=== PATIENT | male | born 1965 | race Hispanic/Latino ===

== ENCOUNTER → 2017-07-21 | Outpatient (CLI) | payer BC ==
--- NOTE | 2017-07-21 13:12 | Diagnostic Imaging Report ---
PROCEDURE: CT ABDOMEN AND PELVIS WITHOUT CONTRAST TECHNIQUE: The abdomen and pelvis were scanned utilizing a multidetector helical scanner from the diaphragm to the lesser trochanter after the oral administration of water. No IV contrast was administered per protocol. Coronal and sagittal multiplanar reformations were obtained. COMPARISON: Patients [facility], CT, CT ABDOMEN/PELVIS W, 05/16/2016, 16:58. INDICATIONS: RENAL STONE FINDINGS: ABSENCE OF INTRAVENOUS CONTRAST DECREASES SENSITIVITY FOR DETECTION OF FOCAL LESIONS AND VASCULAR PATHOLOGY. LOWER THORAX: Stable 5 mm pulmonary nodule in the lateral right lower lobe (series 3, image 12). Stable 4 mm nodule in the lateral right lower lobe (series 3, image 6). 0.7 x 0.8 cm slightly spiculated nodule in the posterior left lower lobe, which was not seen on the prior exam (series 3, image 20). HEPATOBILIARY: Hepatic steatosis, predominantly involving the right hepatic lobe. No focal lesions. No biliary ductal dilation. 5 mm calcified stone in the gallbladder lumen. No wall thickening or pericholecystic fluid. SPLEEN: Spleen size in the upper limit of normal. No focal lesions. PANCREAS: No focal masses or ductal dilatation. ADRENALS: No adrenal nodules. KIDNEYS/URETERS: No renal or ureteral calculi, hydronephrosis, hydroureter, or evidence of obstruction. Interval increase in size of approximately 2.7 x 2.9 x 2.7 cm the fluid density lesion in the mid to inferior lateral right kidney (series 3, image 83), which contains a punctate peripheral calcification (previously measured 1.7 x 1.0 cm). Stable mild bilateral nonspecific perinephric stranding. PELVIC ORGANS/BLADDER: No bladder focal lesions, calculi, or wall thickening. Prostate is unremarkable. Pelvic phleboliths. PERITONEUM / RETROPERITONEUM: No free air or fluid. LYMPH NODES: No lymphadenopathy. VESSELS: Unremarkable. GI TRACT: No bowel dilation or evidence of obstruction. BONES AND SOFT TISSUES: Nonaggressive lytic lesion. Soft tissues are grossly unremarkable. IMPRESSION: 1. no renal, ureteral, or bladder calculi. No hydronephrosis, hydroureter, or evidence of obstruction. 2. Interval increase in size of minimally complex cystic lesion in the mid to inferior lateral right kidney, which contains a punctate peripheral calcification. Recommend followup renal ultrasound in 6-12 months document stability. 3. New 0.8 cm slightly spiculated pulmonary nodule in the left lower lobe. Per Fleischner Society 2017 guidelines, a CT chest is recommended in 6-12 months to document stability or resolution, whether this is a high or low risk patient. Meet Eason M.D. Dictated by: Meet Eason M.D. on 07/21/2017 at 13:11 Electronically approved by: Meet Eason M.D. on 07/21/2017 at 13:11
== END ==
LOC: CT 11:52
PROVIDERS: ATTEND Family Medicine
DX: N23 Unspecified renal colic (principal); R31.9 Hematuria, unspecified
CPT/HCPCS: 74176

== ENCOUNTER → 2017-07-22 | Outpatient (CLI) | payer BC ==
[~2017-07-22] MED LIST: IOPAMIDOL 370 MG/ML 200 ML INFUS..BTL INJ ONE; SODIUM CHLORIDE 0.9% 250ML 250 ML ONE
[2017-07-22 15:05] LABS: BLOOD UREA NITROGEN 14 mg/dL (7-26); BUN/CREATININE RATIO 13 (6-25); CREATININE, SERUM 1.05 mg/dL (0.72-1.25); EST GLOMERULAR FILTRATION RATE > 60 ML/MIN (60-)
--- NOTE | 2017-07-22 16:54 | Diagnostic Imaging Report ---
PROCEDURE:CT ABDOMEN AND PELVIS WITH CONTRAST COMPARISON:Unenhanced CT abdomen/pelvis 07/21/17, contrast enhanced CT 05/16/16 INDICATIONS:HEMATURIA, right-sided flank pain for several days TECHNIQUE: Multidetector CT scanning of the abdomen and pelvis was performed after the administration of 150 cc of nonionic contrast in a split bolus fashion to opacify the renal collecting systems, ureters, and bladder. Coronal and sagittal reformations were obtained. DLP: 887.3 mGY-cm FINDINGS: Lung bases: Spiculated nodule in the left lower lobe measures 8 mm and is stable. Subpleural nodule in the lateral right lower lobe measures 4 mm and is stable. No consolidation. Visualized portion of the mediastinum is normal. Liver: Decreased attenuation. No evidence of mass. Biliary: The gallbladder contains a subcentimeter calcified gallstone. No biliary ductal dilatation. Spleen: Normal size and attenuation without mass Pancreas: No mass or ductal dilatation. Mild fatty atrophy. Adrenal Glands: No mass. Kidneys/Ureters: Right kidney: Mildly heterogeneous enhancement. Cyst in the interpolar cortex measures 3.4 x 3.1 x 3.2 cm with hypoattenuation of the surrounding parenchyma. There is a punctate calcification of the wall at the 9:00 position. In 2016, this measured 1.7 cm. One calyx in the interpolar region (image 67) and one calyx in the lower pole (image 86) have a "golf ball on jessica" appearance. The remainder of the renal calyces are normal. There is no hydronephrosis. There are no filling defects in the opacified portion of the right ureter. The right ureter is not dilated. Left kidney: Mildly heterogeneous enhancement. No defined mass. There is excretion of contrast into normal appearing collecting systems. The left ureter is normal in diameter throughout its course. No intrinsic or extrinsic filling defects along the opacified portions. Gastrointestinal: The stomach, small bowel, and large bowel are normal in diameter and normal wall thickness. No diverticula are appreciated. The appendix is not visualized and may be absent or collapsed. Vasculature: The aorta and IVC are normal in diameter. No filling defects. Peritoneum/Retroperitoneum: No free fluid or fluid collection. Bladder: Well-distended. No evidence of mural thickening or intraluminal mass. No perivesicular inflammation. Reproductive organs: Prostate gland and seminal vesicles are unremarkable. Musculoskeletal: No focal osseous lesions. There are mild endplate degenerative changes of the spine. CONCLUSION: 1. Cystic mass in the right kidney with surrounding parenchymal hypoattenuation has the appearance of an abscess. Please correlate with signs/symptoms of UTI. Percutaneous drainage should be considered. 2. Two abnormal appearing calyces in the right kidney suggestive of papillary necrosis. 3. Heterogeneous enhancement of both kidneys could be the result of urinary tract infection. 4. No abnormalities of the bladder or urteters to explain hematuria. 5. Hepatic steatosis. 6. Stable pulmonary nodules. Findings of renal abscess discussed with Dr. Joaquín Quintana at 1646 hours on 07/22/2017. Dictated by: Mignon Crowell M.D. on 07/22/2017 at 16:53 Electronically approved by: Mignon Crowell M.D. on 07/22/2017 at 16:53
== END ==
LOC: CT 13:43
PROVIDERS: ATTEND Family Medicine
DX: R31.9 Hematuria, unspecified (principal)
CPT/HCPCS: 36415; 74177; 82565; 84520; J7050; Q9967

== ENCOUNTER 2017-07-23 13:39 | Inpatient (IN) | payer BC ==
[~2017-07-23] VITALS: Ht 180.3 cm; Wt 100.4 kg
--- OUTSIDE RECORDS SUMMARY | 2017-07-23 13:41 | XMS REPORT ---
Author Author [facility] Address Unknown Phone Unavailable Care Team Providers Care Recreation Facilities Supervisor Name Role Phone JOAQUÍN MARTIN Unavailable Unavailable Problems This patient has no known problems. Allergies, Adverse Reactions, Alerts This patient has no known allergies or adverse reactions. Medications This patient has no known medications. Results Test Description Test Time Test Comments Text Results Atomic Results Result Comments CT ABDOMEN/PELVIS W [place] [address] Patient Name: HIRA SINGH MR #: [id number] : 1965 Age/Sex: 51/M Req #: [id number] Adm Physician: Ordered by: MARIO CLAROS, JOAQUÍN Etienne MD Report #: [id number] Location: CT Room/Bed: ___ Procedure: [id number] CT/CT ABDOMEN/PELVIS W Exam Date: 07/22/17 Exam Time: 1500 REPORT STATUS: Signed PROCEDURE: CT ABDOMEN AND PELVIS WITH CONTRAST COMPARISON: Unenhanced CT abdomen/ pelvis 07/21/17, contrast enhanced CT 05/16/16 INDICATIONS: HEMATURIA, right-sided flank pain for several days TECHNIQUE: Multidetector CT scanning of the abdomen and pelvis was performed after the administration of 150 cc of nonionic contrast in a split bolus fashion to opacify the renal collecting systems, ureters, and bladder. Coronal and sagittal reformations were obtained. DLP: 887.3 mGY-cm FINDINGS: Lung bases: Spiculated nodule in the left lower lobe measures 8 mm and is stable. Subpleural nodule in the lateral right lower lobe measures 4 mm and is stable. No consolidation. Visualized portion of the mediastinum is normal. Liver: Decreased attenuation. No evidence of mass. Biliary: The gallbladder contains a subcentimeter calcified gallstone. No biliary ductal dilatation. Spleen: Normal size and attenuation without mass Pancreas: No mass or ductal dilatation. Mild fatty atrophy. Adrenal Glands : No mass. Kidneys/Ureters: Right kidney: Mildly heterogeneous enhancement. Cyst in the interpolar cortex measures 3.4 x 3.1 x 3.2 cm with hypoattenuation of the surrounding parenchyma. There is a punctate calcification of the wall at the 9:00 position. In 2016, this measured 1.7 cm. One calyx in the interpolar region (image 67) and one calyx in the lower pole (image 86) have a "golf ball on jessica" appearance. The remainder of the renal calyces are normal. There is no hydronephrosis. There are no filling defects in the opacified portion of the right ureter. The right ureter is not dilated. Left kidney: Mildly heterogeneous enhancement. No defined mass. There is excretion of contrast into normal appearing collecting systems. The left ureter is normal in diameter throughout its course. No intrinsic or extrinsic filling defects along the opacified portions. Gastrointestinal: The stomach, small bowel, and large bowel are normal in diameter and normal wall thickness. No diverticula are appreciated. The appendix is not visualized and may be absent or collapsed. Vasculature: The aorta and IVC are normal in diameter. No filling defects. Peritoneum/Retroperitoneum: No free fluid or fluid collection. Bladder: Well-distended. No evidence of mural thickening or intraluminal mass. No perivesicular inflammation. Reproductive organs: Prostate gland and seminal vesicles are unremarkable. Musculoskeletal: No focal osseous lesions. There are mild endplate degenerative changes of the spine. CONCLUSION: 1. Cystic mass in the right kidney with surrounding parenchymal hypoattenuation has the appearance of an abscess. Please correlate with signs/symptoms of UTI. Percutaneous drainage should be considered. 2. Two abnormal appearing calyces in the right kidney suggestive of papillary necrosis. 3. Heterogeneous enhancement of both kidneys could be the result of urinary tract infection. 4. No abnormalities of the bladder or urteters to explain hematuria. 5. Hepatic steatosis. 6. Stable pulmonary nodules. Findings of renal abscess discussed with Dr. Joaquín Martin at 1646 hours on 07/22/2017. Dictated by: Wendy Crowell M.D. on 07/22/2017 at 16 :53 Electronically approved by: Wendy Crowell M.D. on 07/22/2017 at 16:53 Dictated By: WENDY CROWELL MD 52 Transcribed By: DIEUDONNE on 07/22/171652 COPY TO: JOAQUÍN MARTIN CT ABDOMEN/PELVIS WO [place] [address] Patient Name: HIRA SINGH MR #: [id number] : 1965 Age/Sex: 51/M Req #: [id number] Adm Physician: Ordered by: JOAQUÍN MARTIN MD, MD Report #: [id number] Location: CT Room/Bed: ___ Procedure: [id number] CT/CT ABDOMEN/PELVIS WO Exam Date: 07/21/17 Exam Time: 1220 REPORT STATUS: Signed PROCEDURE: CT ABDOMEN AND PELVIS WITHOUT CONTRAST TECHNIQUE: The abdomen and pelvis were scanned utilizing a multidetector helical scanner from the diaphragm to the lesser trochanter after the oral administration of water. No IV contrast was administered per protocol. Coronal and sagittal multiplanar reformations were obtained. COMPARISON: [facility], CT, CT ABDOMEN/PELVIS W, 05/16/2016, 16:58. INDICATIONS: RENAL STONE FINDINGS: ABSENCE OF INTRAVENOUS CONTRAST DECREASES SENSITIVITY FOR DETECTION OF FOCAL LESIONS AND VASCULAR PATHOLOGY. LOWER THORAX: Stable 5 mm pulmonary nodule in the lateral right lower lobe ( series 3, image 12). Stable 4 mm nodule in the lateral right lower lobe ( series 3, image 6). 0.7 x 0.8 cm slightly spiculated nodule in the posterior left lower lobe, which was not seen on the prior exam (series 3, image 20). HEPATOBILIARY: Hepatic steatosis, predominantly involving the right hepatic lobe. No focal lesions. No biliary ductal dilation. 5 mm calcified stone in the gallbladder lumen. No wall thickening or pericholecystic fluid. SPLEEN: Spleen size in the upper limit of normal. No focal lesions. PANCREAS: No focal masses or ductal dilatation. ADRENALS: No adrenal nodules. KIDNEYS/URETERS: No renal or ureteral calculi, hydronephrosis, hydroureter, or evidence of obstruction. Interval increase in size of approximately 2.7 x 2.9 x 2.7 cm the fluid density lesion in the mid to inferior lateral right kidney (series 3, image 83), which contains a punctate peripheral calcification (previously measured 1.7 x 1.0 cm). Stable mild bilateral nonspecific perinephric stranding. PELVIC ORGANS/BLADDER: No bladder focal lesions, calculi, or wall thickening. Prostate is unremarkable. Pelvic phleboliths. PERITONEUM / RETROPERITONEUM: No free air or fluid. LYMPH NODES: No lymphadenopathy. VESSELS: Unremarkable. GI TRACT: No bowel dilation or evidence of obstruction. BONES AND SOFT TISSUES: Nonaggressive lytic lesion. Soft tissues are grossly unremarkable. IMPRESSION: 1. no renal, ureteral, or bladder calculi. No hydronephrosis, hydroureter, or evidence of obstruction. 2. Interval increase in size of minimally complex cystic lesion in the mid to inferior lateral right kidney, which contains a punctate peripheral calcification. Recommend followup renal ultrasound in 6-12 months document stability. 3. New 0.8 cm slightly spiculated pulmonary nodule in the left lower lobe. Per Fleischner Society 2017 guidelines, a CT chest is recommended in 6-12 months to document stability or resolution, whether this is a high or low risk patient. Sal Eason M.D. Dictated by: Sal Eason M.D. on 07/21/2017 at 13:11 Electronically approved by: Sal Eason M.D. on 07/21/2017 at 13:11 Dictated By: SAL EASON MD [id number] Transcribed By: DIEUDONNE on 07/21/17 1311 COPY TO: JOAQUÍN MARTIN
[2017-07-23 15:07] LABS: BASOPHILS % 0.2 % (0.0-1.0); EOSINOPHILS # (AUTO) 0.1 (0.0-0.4); EOSINOPHILS % 0.8 % (0.0-6.0); HEMATOCRIT 35.6 % (38.2-49.6); HEMOGLOBIN 11.8 g/dL (14.0-18.0); LYMPHOCYTES # (AUTO) 1.6 (1.0-3.2); LYMPHOCYTES % 15.5 % (18.0-39.1); MEAN CORPUSCULAR HEMOGLOBIN 26.2 pg (28-32); MEAN CORPUSCULAR HGB CONC 33.1 g/dL (31-35); MEAN CORPUSCULAR VOLUME 79.1 fL (81-99); MONOCYTES # (AUTO) 0.9 (0.2-0.8); MONOCYTES % 8.6 % (4.4-11.3); NEUTROPHILS # (AUTO) 7.5 (2.1-6.9); NEUTROPHILS % 74.5 % (38.7-80.0); PLATELET COUNT 288 x10e3/uL (140-360); RED CELL DISTRIBUTION WIDTH 13.2 % (11.7-14.4)
[2017-07-23 15:11] LABS: BILIRUBIN,URINE NEGATIVE (NEGATIVE); COLOR,URINE YELLOW (YELLOW); KETONES,URINE TRACE (NEGATIVE); LEUKOCYTE ESTERASE ,URINE 1+ (NEGATIVE); NITRITE,URINE NEGATIVE (NEGATIVE); URINE UROBILINOGEN 0.2 mg/dL (0.2 - 1)
[2017-07-23 15:12] LABS: CLARITY,URINE SL CLOUDY (CLEAR); PROTEIN,URINE DIPSTICK TRACE (NEGATIVE)
[2017-07-23 15:26] LABS: ALANINE AMINOTRANSFERASE 17 IU/L (0-55); ALBUMIN 2.9 g/dL (3.5-5.0); ALBUMIN/GLOBULIN RATIO 0.5 (0.8-2.0); ALKALINE PHOSPHATASE 90 IU/L (40-150); BLOOD UREA NITROGEN 14 mg/dL (7-26); BUN/CREATININE RATIO 13 (6-25); CALCIUM 9.4 mg/dL (8.4-10.2); CARBON DIOXIDE 29 mmol/L (22-29); CHLORIDE 92 mmol/L (98-107); CREATININE, SERUM 1.11 mg/dL (0.72-1.25); EST GLOMERULAR FILTRATION RATE > 60 ML/MIN (60-); GLUCOSE 355 mg/dL (74-118); SODIUM 132 mmol/L (136-145)
[2017-07-23 15:28] LABS: BACTERIA,URINE FEW /HPF; MUCUS,URINE FEW (RARE)
[2017-07-23] MEDS ORDERED: MORPHINE SULFATE 2 MG/ML SYR IV PRN (16:00)
[2017-07-23] MEDS ORDERED: SODIUM CHLORIDE FLUSH 10 ML SYR INJ PRN (16:00)
[2017-07-23] MEDS ORDERED: PIPER-TAZ 3.375 GM 50 ML IV ONE (16:00)
[2017-07-23 16:18] LABS: INR 1.24; PROTHROMBIN TIME 14.7 seconds (11.9-14.5)
[2017-07-23 16:19] LABS: PARTIAL THROMBOPLASTIN TIME 34.7 seconds (23.8-35.5)
[2017-07-23] MEDS ORDERED: ACETAMINOPHEN 325 MG TAB PO PRN (16:30)
[2017-07-23] MEDS ORDERED: INSULIN DETEMIR 100 UNIT/ML PEN SQ ONE (16:45)
[2017-07-23] MEDS ORDERED: METFORMIN HCL 500 MG TAB PO SCH (17:00)
--- NOTE | 2017-07-23 17:19 | Diagnostic Imaging Report ---
PROCEDURE: A single AP view of the chest. COMPARISON: Patients [facility], , CHEST 2 VIEWS, 05/12/2016, 17:09. INDICATIONS: cough FINDINGS: Lines/tubes: None. Lungs: The lungs are well inflated and grossly clear. There is no evidence of pneumonia or pulmonary edema. Pleura: There is no pleural effusion or pneumothorax. Heart and mediastinum: Cardiac silhouette is unremarkable. Pulmonary vasculature is normal. Bones: No acute bony abnormality. IMPRESSION: 1. No acute cardiopulmonary abnormalities. Meet Eason M.D. Dictated by: Meet Eason M.D. on 07/23/2017 at 17:19 Electronically approved by: Meet Eason M.D. on 07/23/2017 at 17:19
[2017-07-23] MEDS: SODIUM CHLORIDE 0.9% 1000ML 1,000 ML IV SCH (17:30)
[2017-07-23] MEDS: INSULIN LISPRO 100 UNIT/1 ML 3ML VIAL SQ SCH ×2 (17:51→21:00)
[2017-07-23 22:50] VITALS: BP 148/79
[2017-07-24] VITALS (9 sets, daily range): BP systolic 115–148; BP diastolic 60–80
[2017-07-24] MEDS: SODIUM CHLORIDE 0.9% 1000ML 1,000 ML IV SCH ×4 (00:18→23:50)
[2017-07-24 06:32] LABS: BASOPHILS % 0.1 % (0.0-1.0); EOSINOPHILS # (AUTO) 0.1 (0.0-0.4); EOSINOPHILS % 1.1 % (0.0-6.0); HEMATOCRIT 32.1 % (38.2-49.6); HEMOGLOBIN 10.6 g/dL (14.0-18.0); LYMPHOCYTES # (AUTO) 1.6 (1.0-3.2); LYMPHOCYTES % 17.4 % (18.0-39.1); MEAN CORPUSCULAR VOLUME 78.9 fL (81-99); MONOCYTES # (AUTO) 0.8 (0.2-0.8); MONOCYTES % 8.5 % (4.4-11.3); NEUTROPHILS # (AUTO) 6.6 (2.1-6.9); NEUTROPHILS % 72.7 % (38.7-80.0); PLATELET COUNT 280 x10e3/uL (140-360); RED BLOOD COUNT 4.07 x10e6/uL (4.3-5.7); RED CELL DISTRIBUTION WIDTH 13.2 % (11.7-14.4)
[2017-07-24 06:45] LABS: INR 1.29; PROTHROMBIN TIME 15.1 seconds (11.9-14.5)
[2017-07-24 06:46] LABS: PARTIAL THROMBOPLASTIN TIME 37.4 seconds (23.8-35.5)
[2017-07-24 06:53] LABS: ALANINE AMINOTRANSFERASE 16 IU/L (0-55); ALBUMIN 2.5 g/dL (3.5-5.0); ALBUMIN/GLOBULIN RATIO 0.5 (0.8-2.0); ALKALINE PHOSPHATASE 74 IU/L (40-150); ANION GAP 16.3 mmol/L (8-16); BLOOD UREA NITROGEN 11 mg/dL (7-26); BUN/CREATININE RATIO 12 (6-25); CALCIUM 8.6 mg/dL (8.4-10.2); CARBON DIOXIDE 25 mmol/L (22-29); CHLORIDE 95 mmol/L (98-107); CHOL/HDL RATIO 10.3 (3.9-4.7); CHOLESTEROL 124 MD/DL (0-199); EST GLOMERULAR FILTRATION RATE > 60 ML/MIN (60-); GLUCOSE 310 mg/dL (74-118); HDL CHOLESTEROL 12 MG/DL (40-60); LDL CHOLESTEROL 84 MG/DL (60-130); MAGNESIUM 1.4 MG/DL (1.3-2.1); PHOSPHORUS 3.5 MG/DL (2.3-4.7); POTASSIUM 3.3 mmol/L (3.5-5.1); SODIUM 133 mmol/L (136-145); TRIGLYCERIDES 138 MG/DL (0-149)
[2017-07-24] MEDS: INSULIN LISPRO 100 UNIT/1 ML 3ML VIAL SQ SCH ×4 (07:30→21:31)
[2017-07-24] MEDS ORDERED: PIPER-TAZ 3.375 GM 50 ML IV ONE (08:00)
[2017-07-24] MEDS ORDERED: FENTANYL CITRATE/PF 100MCG/2 ML INJ ONE (13:07)
[2017-07-24] MEDS ORDERED: MIDAZOLAM HCL 2 MG/2 ML VIAL ONE (13:12)
--- NOTE | 2017-07-24 14:46 | Consultation ---
DATE OF CONSULTATION: REASON FOR CONSULTATION: Renal abscess. HISTORY OF PRESENT ILLNESS: This patient is a 51-year-old male who is coming with right-sided abdominal pain. The patient was admitted to the hospital. I was asked to see him. He is currently undergoing aspiration of an abscess. I did go over the patient and patient had aspiration of 5 mL of pus from his kidney, did well. Discussed with the radiologist the plan to send it to culture and sensitivity. The patient currently comfortable. PAST MEDICAL HISTORY: Diabetes. PAST SURGICAL HISTORY: Denies. ALLERGIES: NKA. PHYSICAL EXAMINATION GENERAL: Currently, alert, oriented, does not seem to be in acute distress. VITALS: Stable, currently afebrile. HEENT: Nonicteric. NECK: Supple. CHEST: Clear. HEART: S1 and S2. No murmur. ABDOMEN: Soft. LABORATORY DATA: Sodium 133, potassium 3.3, and creatinine 0.92. His white count 9.27 and hemoglobin 10. IMPRESSION AND PLAN 1. Renal abscess, agree with aspiration. Await culture and sensitivity. Agree with Zosyn. We will modify after sensitivity. 2. Diabetes. 3. We will follow with you. Job#: [id number] VAS
[2017-07-24] MEDS ORDERED: DEXTROSE 50% SYRINGE 50 ML IV PRN (16:45)
--- NOTE | 2017-07-24 16:47 | Consultation ---
DATE OF CONSULTATION: July 24, 2017 REASON FOR CONSULTATION: Renal abscess. HISTORY: This is a 51-year-old male who approximately 3-4 weeks ago experienced gross painless hematuria. This went away by itself. He went to the doctor and took several days of antibiotics, and apparently things improved. Subsequent to that, the patient over the last 48 hours felt worse with fever, chills, weak, had noticed that he has lost some weight over the last 3 weeks and that he started developing pain on the right flank. At that point, he wanted to see Dr. Quintana and a CT scan was ordered. It showed no stones, but it showed perhaps a shadow of the right kidney. Recommendation to do a CT scan with contrast was done. The patient was scheduled for that and that CT scan did reveal that the patient had an abscess on the right kidney. At that point, decision was to admit the patient to the hospital. He also has had culture report from Dr. Quintana's office showing Staphylococcus aureus, methicillin resistant. I discussed the case with Dr. Martinez, and our decision was to have the invasive radiologist drain that abscess together with Dr. Odell for continuation of care with IV antibiotics for 3-4 weeks. PAST SURGICAL HISTORY: Eye surgery. PAST MEDICAL HISTORY: Diabetes. SOCIAL HISTORY: . Has had problems with sexual intercourse and erection. He has had one child and has one grandchild. UROLOGICAL HISTORY: Essentially negative with no surgeries and no problems urinating. PHYSICAL EXAMINATION : Descended testicles, normal. No hernias. Penis normal. Prostate 25 to [address] scan: Abscess of the right kidney. RECOMMENDATIONS: Percutaneous drainage by invasive radiologist. Cultures for gram-positive, gram-negative and fungus, even though the urine shows Staph aureus. Follow up CT scan to make sure that the abscessed cavity has totally collapsed before the tube is removed. This should be done within 3-5 days after placement. I will follow the patient with you. Job#: [id number]
[2017-07-24] MEDS ORDERED: PIPER-TAZ 3.375 GM 50 ML IV SCH (17:00)
[2017-07-24] MEDS ORDERED: POTASSIUM CHLORIDE 20 MEQ TAB CR PO ONE (17:10)
[2017-07-24] MEDS: VANCOMYCIN 1GM/NS 250 ML 250 ML IV SCH (17:21)
[2017-07-24] MEDS: ONDANSETRON HCL INJ 2 MG/ML VIAL IV PRN (18:06)
[2017-07-24] MEDS ORDERED: PROMETHAZINE 25MG/ NS 50ML (IV) IV PRN (18:45)
[2017-07-24] MEDS: PIPER-TAZ 3.375 GM 50 ML IV SCH (20:59)
[2017-07-24] MEDS ORDERED: INSULIN DETEMIR 100 UNIT/ML PEN SQ SCH (21:00)
[2017-07-24] MEDS ORDERED: PIPER-TAZ 3.375 GM / NS 50ML IV SCH (22:00)
[2017-07-24] MEDS ORDERED: MORPHINE SULFATE INJ 4 MG/ML INJ IV PRN (22:00)
[2017-07-24] MEDS: MORPHINE SULFATE 2 MG/ML SYR IV PRN (22:26)
[2017-07-25] VITALS (8 sets, daily range): BP systolic 122–164; BP diastolic 74–92
[2017-07-25] MEDS: SODIUM CHLORIDE 0.9% 1000ML 1,000 ML IV SCH ×3 (00:45→15:59)
[2017-07-25] MEDS: VANCOMYCIN 1GM/NS 250 ML 250 ML IV SCH ×2 (03:28→17:20)
[2017-07-25] MEDS: PIPER-TAZ 3.375 GM 50 ML IV SCH ×3 (04:58→19:53)
[2017-07-25] MEDS: ONDANSETRON HCL INJ 2 MG/ML VIAL IV PRN (05:57)
[2017-07-25 07:35] LABS: BASOPHILS % 0.2 % (0.0-1.0); EOSINOPHILS # (AUTO) 0.1 (0.0-0.4); EOSINOPHILS % 1.1 % (0.0-6.0); HEMATOCRIT 32.8 % (38.2-49.6); HEMOGLOBIN 10.7 g/dL (14.0-18.0); LYMPHOCYTES # (AUTO) 1.4 (1.0-3.2); LYMPHOCYTES % 15.4 % (18.0-39.1); MEAN CORPUSCULAR HEMOGLOBIN 26.1 pg (28-32); MEAN CORPUSCULAR HGB CONC 32.6 g/dL (31-35); MONOCYTES # (AUTO) 0.7 (0.2-0.8); MONOCYTES % 7.9 % (4.4-11.3); NEUTROPHILS # (AUTO) 6.9 (2.1-6.9); NEUTROPHILS % 74.9 % (38.7-80.0); PLATELET COUNT 294 x10e3/uL (140-360); RED CELL DISTRIBUTION WIDTH 13.5 % (11.7-14.4)
[2017-07-25] MEDS: INSULIN LISPRO 100 UNIT/1 ML 3ML VIAL SQ SCH ×4 (07:57→20:26)
[2017-07-25 08:12] LABS: ANION GAP 14.6 mmol/L (8-16); BLOOD UREA NITROGEN 8 mg/dL (7-26); BUN/CREATININE RATIO 10 (6-25); CALCIUM 8.4 mg/dL (8.4-10.2); CARBON DIOXIDE 26 mmol/L (22-29); CHLORIDE 99 mmol/L (98-107); CREATININE, SERUM 0.84 mg/dL (0.72-1.25); EST GLOMERULAR FILTRATION RATE > 60 ML/MIN (60-); GLUCOSE 296 mg/dL (74-118); MAGNESIUM 1.4 MG/DL (1.3-2.1); POTASSIUM 3.6 mmol/L (3.5-5.1); SODIUM 136 mmol/L (136-145)
[2017-07-25] MEDS ORDERED: LACTULOSE SYRUP 20 GM/30 ML UDC PO PRN (12:30)
[2017-07-25] MEDS ORDERED: ENOXAPARIN SOD INJ 40 MG/0.4 ML SYR SC SCH (17:00)
[2017-07-25] MEDS ORDERED: ONDANSETRON HCL INJ 2 MG/ML VIAL IV PRN (18:00)
[2017-07-25] MEDS: INSULIN DETEMIR 100 UNIT/ML PEN SQ SCH (20:26)
[2017-07-25] MEDS: MORPHINE SULFATE 2 MG/ML SYR IV PRN (20:28)
[2017-07-26] VITALS (7 sets, daily range): BP systolic 123–159; BP diastolic 73–98
[2017-07-26] MEDS: VANCOMYCIN 1GM/NS 250 ML 250 ML IV SCH (05:01)
[2017-07-26] MEDS: PIPER-TAZ 3.375 GM 50 ML IV SCH (07:04)
[2017-07-26] MEDS: SODIUM CHLORIDE 0.9% 1000ML 1,000 ML IV SCH (07:59)
[2017-07-26] MEDS: INSULIN LISPRO 100 UNIT/1 ML 3ML VIAL SQ SCH ×4 (08:17→21:14)
[2017-07-26] MEDS: FLUCONAZOLE 200 MG/100 ML 100 ML IV SCH (11:58)
[2017-07-26] MEDS ORDERED: ACETAMINOPHEN/CODEINE 300MG - 30MG TAB PO PRN (12:15)
[2017-07-26] MEDS: LISINOPRIL 2.5 MG TAB PO SCH (13:34)
[2017-07-26] MEDS: VANCOMYCIN HCL 1.25 GM in SODIUM CHLORIDE 0.9% 250ML 300 ML IV SCH (13:34)
--- NOTE | 2017-07-26 15:26 | Diagnostic Imaging Report ---
EXAMINATION: CHEST XRAY LINE PLACEMENT 07/26/2017 2:52 PM COMPARISON: None INDICATION: PICC line placement DISCUSSION: LINES: Right upper extremity PICC line has its tip near the cavoatrial junction LUNGS: Low lung volumes. Patchy opacities in the right lung base may be related to atelectasis PLEURA: No pleural effusion or pneumothorax. HEART AND MEDIASTINUM: The cardiomediastinal silhouette is unremarkable. BONES AND SOFT TISSUES: No acute osseous lesion. The soft tissues are normal. IMPRESSION: Right upper history PICC line has its tip near the cavoatrial junction. Blayne Mckinney MD Signed by: Dr. Blayne Mckinney M.D. on 07/26/2017 3:23 PM
[2017-07-26] MEDS: METFORMIN HCL 500 MG TAB PO SCH (16:37)
[2017-07-26] MEDS: MORPHINE SULFATE 2 MG/ML SYR IV PRN (20:02)
[2017-07-26] MEDS: INSULIN DETEMIR 100 UNIT/ML PEN SQ SCH (21:14)
[2017-07-27] MEDS: VANCOMYCIN HCL 1.25 GM in SODIUM CHLORIDE 0.9% 250ML 300 ML IV SCH ×2 (00:56→13:45)
[2017-07-27 01:08] VITALS: BP 153/89
[2017-07-27 05:44] VITALS: BP 153/94
[2017-07-27] MEDS: INSULIN LISPRO 100 UNIT/1 ML 3ML VIAL SQ SCH ×2 (07:30→12:00)
--- NOTE | 2017-07-27 07:54 | Diagnostic Imaging Report ---
PROCEDURE:PRUDENCIO ABD FLUID/ABSC W/CATH-US COMPARISON:CT abdomen and pelvis 07/22/2017. INDICATIONS:Renal abscess. FINDINGS:The patient was placed prone on the bed. Focused sonographic evaluation of the right kidney demonstrated the right renal abscess. A safe approach was determined. The right flank was prepped and draped in usual sterile fashion. 1% lidocaine was infused into the subcutaneous tissues for local anesthesia. Utilizing direct sonographic guidance, an 18 gauge needle was advanced into the right renal abscess. Aspiration of purulent material confirmed proper position of the needle within the abscess. A stiff 0.035 inch wire was advanced into the abscess. Single dilation was performed over the wire. A 10 [place] all-purpose drainage catheter was advanced over the wire. The catheter tip is coiled within the abscess. The wire was removed. The catheter was secured in the proper position. 10 cc of purulent material was aspirated and sent for further evaluation. The catheter was secured to the skin with 3-0 Ethilon suture. A sterile dressing was applied. No immediate complications. The patient tolerated the procedure well. The patient was transferred to the postprocedure area in stable unchanged condition for further monitoring. CONCLUSION:Successful placement of a percutaneous drainage catheter within the right renal abscess utilizing ultrasound guidance. Dictated by: Bhupendra Horne M.D. on 07/27/2017 at 7:53 Electronically approved by: Bhupendra Horne M.D. on 07/27/2017 at 7:53
[2017-07-27 08:00] VITALS: BP 132/75
[2017-07-27] MEDS: METFORMIN HCL 500 MG TAB PO SCH (08:00)
[2017-07-27] MEDS: FLUCONAZOLE 200 MG/100 ML 100 ML IV SCH (10:25)
--- NOTE | 2017-07-27 12:43 | Discharge Summary ---
PRIMARY CARE DOCTOR: Dr. Joaquín Quintana. FINAL DIAGNOSIS: Methicillin-resistant Staph aureus septicemia complicated by renal abscess. SECONDARY DIAGNOSIS 1. Diabetes. 2. Possible hypertension. 3. Dyslipidemia. 4. Hyponatremia, resolved. CONSULTANTS 1. Dr. Odell, infectious disease. 2. Dr. Abhi Avila, urology. PROCEDURES/STUDIES PERFORMED 1. Computed tomography of the abdomen and pelvis. 2. Percutaneous renal abscess drainage. 3. Peripherally inserted central catheter line replacement. HISTORY: Per H\T\P. HOSPITAL COURSE: Patient was admitted. Given the fact that we knew that his outpatient urine culture was MRSA, vancomycin was started. Zosyn was empirically started as well, but subsequently this was discontinued. Patient underwent percutaneous drainage, which revealed 15 mL of pus and this was growing MRSA. After that there was not much more drainage. Therefore, the drain will be removed later today. Patient will be going home on IV vancomycin with Dr. Odell once this is set up. Patient was seen and examined today. Took 32 minutes total to discharge this patient today. CONDITION ON DISCHARGE: Stable. DISCHARGE MEDICATIONS: Please see medication reconciliation form. ADELITA LEIVA M.D. Job#: [id number] EV cc:JOAQUÍN QUINTANA MD
[2017-07-27] MEDS: MORPHINE SULFATE 2 MG/ML SYR IV PRN (13:51)
[2017-07-27] MEDS: LISINOPRIL 2.5 MG TAB PO SCH (14:02)
== END 2017-07-27 16:52 | disposition home or self-care (01) | DRG 871 ==
LOC: ER 13:39 → ERHOLD 17:54 → MED/SURG2 22:26
PROVIDERS: ADMIT Internal Medicine; ATTEND Internal Medicine
PROC: 0T9030Z Drainage of Right Kidney with Drainage Device, Percutaneous Approach (ICD-10-PCS; principal; 2017-07-24)
PROC: 02HV33Z Insertion of Infusion Device into Superior Vena Cava, Percutaneous Approach (ICD-10-PCS; 2017-07-26)
DX: A41.02 Sepsis due to Methicillin resistant Staphylococcus aureus (principal); N15.1 Renal and perinephric abscess; E87.1 Hypo-osmolality and hyponatremia; B37.49 Other urogenital candidiasis; N39.0 Urinary tract infection, site not specified; E11.65 Type 2 diabetes mellitus with hyperglycemia; B95.62 Methicillin resistant Staphylococcus aureus infection as the cause of diseases classified elsewhere; Z79.4 Long term (current) use of insulin; E87.6 Hypokalemia
CPT/HCPCS: 36415; 36569; 49406; 71045; 74470; 80048; 80053; 80061; 80202; 81001; 82948; 83036; 83735; 84100; 85025; 85610; 85730; 87040; 87071; 87075; 87086; 87102; 87186; 87205; 87206; 88112; 88305; 88312; 96360; 96372; 99284; C1729; J1450; J1650; J2250; J2270; J2405; J2543; J2550; J3370; J7030; J7050

== ENCOUNTER → 2017-08-10 | Outpatient (CLI) | payer BC ==
--- NOTE | 2017-08-10 17:13 | Diagnostic Imaging Report ---
PROCEDURE:US RETROPERITONEAL ( KIDNEY ). COMPARISON:None. INDICATIONS:UTI TECHNIQUE: [place]-scale and color sonographic images of the bilateral kidneys and bladder where obtained in transverse and longitudinal planes. FINDINGS: RIGHT KIDNEY: 13.1 cm in length. Cysts: None Solid masses: None Stones: None Hydronephrosis: None Echogenicity: Normal LEFT KIDNEY: 12.6 cm in length. Cysts: None Solid masses: None Stones: None Hydronephrosis: None Echogenicity: Normal Bladder: Well-distended. No focal mural thickening or mass. Bladder jets are visible. Prevoid volume is 63.4 cc. Postvoid volume is 20.6 cc. Prostate gland measures 3.8 x 5.9 x 2.8 cm. The echotexture is normal. Visualized portions of the liver and spleen demonstrate no focal abnormality. The liver is increased in echotexture suggestive of steatosis. CONCLUSION: Sonographically normal kidneys and bladder. No significant post void residual in the bladder. Hepatic steatosis. Dictated by: Mignon Crowell M.D. on 08/10/2017 at 17:13 Electronically approved by: Mignon Crowell M.D. on 08/10/2017 at 17:13
== END | disposition home or self-care (01) ==
LOC: US 12:44
PROVIDERS: ATTEND Urology
DX: N39.0 Urinary tract infection, site not specified (principal); K76.0 Fatty (change of) liver, not elsewhere classified
CPT/HCPCS: 76770; 76857

== ENCOUNTER → 2017-08-12 | Outpatient (CLI) | payer BC ==
[2017-08-12 10:07] LABS: BUN/CREATININE RATIO 19 (6-25); EST GLOMERULAR FILTRATION RATE > 60 ML/MIN (60-)
[2017-08-12 10:08] LABS: BLOOD UREA NITROGEN 17 mg/dL (8-26); CREATININE, SERUM 0.9 mg/dL (0.9-1.3)
--- NOTE | 2017-08-12 10:58 | Diagnostic Imaging Report ---
PROCEDURE: CHEST XRAY LINE PLACEMENT COMPARISON: 07/26/2017. INDICATIONS: PICC LINE PLACEMENT FINDINGS: Interval removal of right upper extremity PICC and placement of a left upper extremity PICC, with the tip projecting over the expected region of the superior cavoatrial junction. Lungs remain well-inflated and without consolidation, pleural effusion, or pneumothorax. Cardiomediastinal contour and pulmonary vasculature are within normal limits. No acute osseous abnormality. CONCLUSION: Tip of left upper extremity PICC projects over the superior cavoatrial junction. Clear lungs. Dictated by: Jose Daniel Arce M.D. on 08/12/2017 at 10:58 Electronically approved by: Jose Daniel Arce M.D. on 08/12/2017 at 10:58
== END ==
LOC: DX 09:09
PROVIDERS: ATTEND Internal Medicine Infectious Disease
DX: N15.9 Renal tubulo-interstitial disease, unspecified (principal)
CPT/HCPCS: 36415; 71045; 82565; 84520

== ENCOUNTER → 2017-08-26 | Outpatient (CLI) | payer BC | LOC: RAD 08:53 | PROVIDERS: ATTEND Internal Medicine Infectious Disease | DX: I38 Endocarditis, valve unspecified (principal) | CPT/HCPCS: 93306 ==

== ENCOUNTER → 2017-10-13 | Outpatient (CLI) | payer BC | LOC: RAD 10:24 | PROVIDERS: ATTEND Family Medicine | DX: M79.605 Pain in left leg (principal); R60.9 Edema, unspecified | CPT/HCPCS: 93971 ==

== ENCOUNTER 2017-10-18 10:34 | Inpatient (IN) | payer BC ==
[~2017-10-18] VITALS: Ht 180.3 cm; Wt 102.1 kg
[2017-10-18] MEDS ORDERED: SODIUM CHLORIDE 0.9% 1000ML 1,000 ML IV STA (10:39)
[2017-10-18] MEDS ORDERED: KETOROLAC TROMETHAMINE 30 MG/ML VIAL IV STA (10:39)
--- OUTSIDE RECORDS SUMMARY | 2017-10-18 10:39 | XMS REPORT | Continuity of Care Document ---
Author Author [facility] Organization 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 No 07/23/17 11:57pm If yes, is advance directive on file with [facility]? No 07/23/17 11:57pm If not on file with [facility] will patient provide a copy? No 07/23/17 11:57pm Do you have a Directive to Physician? No 07/23/17 3:45pm Do you have a Medical Power of Principal Technical Specialist? No 07/23/17 3:45pm Do you have an out of hospital Do Not Resuscitate Order? No 07/23/17 3:45pm Do you have any special needs we should be aware of? No 07/23/17 3:45pm Do you have a support person here with you today? Yes 07/23/17 3:45pm Did patient receive Notice of Privacy Practices? Yes 07/23/17 3:45pm Did patient receive patient rights and responsibilities? Yes 07/23/17 3:45pm Problems Medical Problem Onset Date Status Renal abscess Unknown Medications No medication information available. Social History Social History Problem Response Recorded Date/Time Onset Date Status Hx Psychiatric Problems No 07/23/2017 11:57pm Not Applicable Not Applicable Smoking Status Start Date Stop Date Current every day smoker Hospital Discharge Instructions No hospital discharge instruction information available. Plan of Care Discharge Date 07/27/17 4:52pm Disposition HOME, SELF-CARE Instructions/Education Provided Hematuria - Male Prescriptions See Medication Section Referrals SHIELA DUFFY MD (Infectious Disease) Order Date: 07/28/2017 Entered Date: 07/27/2017 3:55pm Address: [address] [place] [address] [place] [id number] SARAH PAGAN MD (Urology) Entered Date: 07/27/2017 3:55pm Address: [address] [place] [id number] Additional Instructions/Education Please continue home medications. Follow with Dr. Duffy 07/28/17 in office for IV antibiotics. Functional Status Query Response Date Recorded Assistive Devices None July 24, 2017 12:02am Ambulation Ability Independent July 24, 2017 12:02am Toileting Ability Independent July 26, 2017 11:58am Allergies, Adverse Reactions, Alerts No known allergies. Immunizations No immunization information available. Vital Signs Acute Vital Signs Vital Response Date/Time Temperature (Fahrenheit) 97.1 degrees F (97.6 - 99.5) 07/27/2017 8:00am Pulse Pulse Rate (adult) 81 bpm (60 - 90) 07/27/2017 8:00am Respiratory Rate 19 bpm (12 - 24) 07/27/2017 8:00am Blood Pressure 132/75 mm Hg 07/27/2017 8:00am Height 5 ft 11 in 07/23/2017 2:25pm Weight 221.25 lb 07/25/2017 1:50am Body Mass Index 30.9 kg/m^2 07/25/2017 1:50am Results Laboratory Results Test Name Result Units Flags Reference Collection Date/Time Result Date/ Time Comments White Blood Count 9.15 x10e3/uL 4.8-10.8 07/25/2017 6:48am 07/25/2017 7 :39am Red Blood Count 4.10 x10e6/uL L 4.3-5.7 07/25/2017 6:48am 07/25/2017 7: 39am Hemoglobin 10.7 g/dL L 14.0-18.0 07/25/2017 6:48am 07/25/2017 7:39am Hematocrit 32.8 % L 38.2-49.6 07/25/2017 6:48am 07/25/2017 7:39am Mean Corpuscular Volume 80.0 fL L 81-99 07/25/2017 6:48am 07/25/2017 7: 39am Mean Corpuscular Hemoglobin 26.1 pg L 28-32 07/25/2017 6:48am 2017 7:39am Mean Corpuscular Hemoglobin Concent 32.6 g/dL 31-35 07/25/2017 6:48am 07/25/2017 7:39am Red Cell Distribution Width 13.5 % 11.7-14.4 07/25/2017 6:48am 2017 7:39am Platelet Count 294 x10e3/uL 140-360 07/25/2017 6:48am 07/25/2017 7: 39am Neutrophils (%) (Auto) 74.9 % 38.7-80.0 07/25/2017 6:48am 07/25/2017 7: 39am Lymphocytes (%) (Auto) 15.4 % L 18.0-39.1 07/25/2017 6:48am 07/25/2017 7 :39am Monocytes (%) (Auto) 7.9 % 4.4-11.3 07/25/2017 6:48am 07/25/2017 7: 39am Eosinophils (%) (Auto) 1.1 % 0.0-6.0 07/25/2017 6:48am 07/25/2017 7: 39am Basophils (%) (Auto) 0.2 % 0.0-1.0 07/25/2017 6:48am 07/25/2017 7:39am IM GRANULOCYTES % 0.5 % 0.0-1.0 07/25/2017 6:48am 07/25/2017 7:39am Neutrophils # (Auto) 6.9 2.1-6.9 07/25/2017 6:48am 07/25/2017 7:39am Lymphocytes # (Auto) 1.4 1.0-3.2 07/25/2017 6:48am 07/25/2017 7:39am Monocytes # (Auto) 0.7 0.2-0.8 07/25/2017 6:48am 07/25/2017 7:39am Eosinophils # (Auto) 0.1 0.0-0.4 07/25/2017 6:48am 07/25/2017 7:39am Basophils # (Auto) 0.0 0.0-0.1 07/25/2017 6:48am 07/25/2017 7:39am Absolute Immature Granulocyte (auto 0.05 x10e3/uL 0-0.1 07/25/2017 6: 48am 07/25/2017 7:39am Prothrombin Time 15.1 seconds H 11.9-14.5 07/24/2017 5:52am 07/24/2017 6 :47am Prothromb Time International Ratio 1.29 07/24/2017 5:52am 2017 6:47am Oral Anticoagulant Therapy INR Values: 1. Low Intensity Therapy 1.5 - 2.0 2. Moderate Intensity Therapy 2.0 - 3.0 3. High Intensity Therapy(1) 2.5 - 3.5 4. High Intensity Therapy(2) 3.0 - 4.0 5. Panic Value INR > 5.0 Activated Partial Thromboplast Time 37.4 seconds H 23.8-35.5 07/24/2017 5 :52am 07/24/2017 6:47am Urine Color YELLOW YELLOW 07/23/2017 2:34pm 07/23/2017 3:12pm Urine Clarity SL CLOUDY H CLEAR 07/23/2017 2:34pm 07/23/2017 3:12pm Urine Specific [place] 1.025 1.010-1.025 07/23/2017 2:34pm 2017 3:12pm Urine pH 5 5 - 7 07/23/2017 2:34pm 07/23/2017 3:12pm Urine Leukocyte Esterase 1+ H NEGATIVE 07/23/2017 2:34pm 07/23/2017 3: 12pm Urine Nitrite NEGATIVE NEGATIVE 07/23/2017 2:34pm 07/23/2017 3:12pm Urine Protein TRACE H NEGATIVE 07/23/2017 2:34pm 07/23/2017 3:12pm Urine Glucose (UA) 3+ H NEGATIVE 07/23/2017 2:34pm 07/23/2017 3:12pm Urine Ketones TRACE H NEGATIVE 07/23/2017 2:34pm 07/23/2017 3:12pm Urine Urobilinogen 0.2 mg/dL 0.2 - 1 07/23/2017 2:34pm 07/23/2017 3: 12pm Urine Bilirubin NEGATIVE NEGATIVE 07/23/2017 2:34pm 07/23/2017 3: 12pm Urine Blood 2+ H NEGATIVE 07/23/2017 2:34pm 07/23/2017 3:12pm Urine WBC 11-20 /HPF H 0-5 07/23/2017 2:34pm 07/23/2017 3:28pm Urine RBC 11-20 /HPF H 0-5 07/23/2017 2:34pm 07/23/2017 3:28pm Urine Bacteria FEW /HPF NONE 07/23/2017 2:34pm 07/23/2017 3:28pm Urine Epithelial Cells NONE /LPF NONE 07/23/2017 2:34pm 07/23/2017 3: 28pm Urine Mucus FEW H RARE 07/23/2017 2:34pm 07/23/2017 3:28pm Sodium Level 136 mmol/L 136-145 07/25/2017 6:48am 07/25/2017 8:16am Potassium Level 3.6 mmol/L 3.5-5.1 07/25/2017 6:48am 07/25/2017 8:16am Chloride Level 99 mmol/L 98-107 07/25/2017 6:48am 07/25/2017 8:16am Carbon Dioxide Level 26 mmol/L 22-07/25/2017 6:48am 07/25/2017 8: 16am Anion Gap 14.6 mmol/L 8-16 07/25/2017 6:48am 07/25/2017 8:16am Blood Urea Nitrogen 8 mg/dL 7-07/25/2017 6:48am 07/25/2017 8:16am Creatinine 0.84 mg/dL 0.72-1.25 07/25/2017 6:48am 07/25/2017 8:16am BUN/Creatinine Ratio 10 6-25 07/25/2017 6:48am 07/25/2017 8:16am Estimat Glomerular Filtration Rate > 60 ML/MIN 60- 07/25/2017 6:48am 8:16am Ranges were taken from the National Kidney Disease Education Program and the National Kidney Foundation literature. Reference ranges: 60 or greater: Normal 16-59 (for 3 consecutive months): Chronic kidney disease 15 or less: Kidney failure Glucose Level 296 mg/dL H 74-118 07/25/2017 6:48am 07/25/2017 8:16am Calcium Level 8.4 mg/dL 8.4-10.2 07/25/2017 6:48am 07/25/2017 8:16am Bedside Glucose 247 mg/dL H 70-120 07/27/2017 3:52pm 07/27/2017 4:38pm Meter ID: [id number] Hemoglobin A1c Percent 12.6 % H 4.0-7.0 07/24/2017 5:52am 07/24/2017 6: 54am Phosphorus Level 3.5 MG/DL 2.3-4.7 07/24/2017 5:52am 07/24/2017 6:53am Magnesium Level 1.4 MG/DL 1.3-2.1 07/25/2017 6:48am 07/25/2017 8:16am Total Bilirubin 0.9 mg/dL 0.2-1.2 07/24/2017 5:52am 07/24/2017 6:53am Aspartate Amino Transf (AST/SGOT) 18 IU/L 5-34 07/24/2017 5:52am 2017 6:53am Alanine Aminotransferase (ALT/SGPT) 16 IU/L 0-55 07/24/2017 5:52am 6:53am Total Protein 7.5 g/dL 6.5-8.1 07/24/2017 5:52am 07/24/2017 6:53am Albumin 2.5 g/dL L 3.5-5.0 07/24/2017 5:52am 07/24/2017 6:53am Globulin 5.0 g/dL H 2.3-3.5 07/24/2017 5:52am 07/24/2017 6:53am Albumin/Globulin Ratio 0.5 L 0.8-2.0 07/24/2017 5:52am 07/24/2017 6: 53am Alkaline Phosphatase 74 IU/L 40-150 07/24/2017 5:52am 07/24/2017 6: 53am Triglycerides Level 138 MG/DL 0-149 07/24/2017 5:52am 07/24/2017 6: 53am Cholesterol Level 124 MD/DL 0-199 07/24/2017 5:52am 07/24/2017 6:53am Less than 200 mg/dL Low Risk 201 - 239 mg/dL Borderline Risk 240 mg/dl and greater High Risk LDL Cholesterol 84 MG/DL 60-130 07/24/2017 5:52am 07/24/2017 6:53am HDL Cholesterol 12 MG/DL L 40-60 07/24/2017 5:52am 07/24/2017 6:53am Cholesterol/HDL Ratio 10.3 H 3.9-4.7 07/24/2017 5:52am 07/24/2017 6: 53am Vancomycin Level Trough 4.6 ug/mL L 5.0-10.0 07/25/2017 4:20pm 2017 4:53pm Microbiology Results Procedure Source Organism/Result Collection Date/Time Result Date/Time Result Status Urine Culture Urine,Clean Catch LILIANE ALBICANS-PRESUMPTIVE 07/23/2017 2: 34pm 07/26/2017 8:12am Preliminary STAPHYLOCOCCUS AUREUS-MRSA 07/23/2017 2:34pm 07/26/2017 8:12am Preliminary Wound Culture Drainage, Abscess STAPHYLOCOCCUS AUREUS-MRSA 07/24/2017 1: 29pm 07/26/2017 8:15am Final Blood Culture Blood Growth detected. Culture workup ordered. 07/25/2017 9: 37am 07/26/2017 2:33pm Final Blood Culture Blood STAPHYLOCOCCUS AUREUS 07/25/2017 9:37am 07/27/2017 2: 07pm Preliminary Procedures Procedure Status Date Provider(s) CT of abdomen and pelvis without contrast Active 07/21/17 NENO MARTIN Computed tomography of abdomen and pelvis with contrast Active 07/22/17 NENO MARTIN Drainage of abdominal abscess with ultrasound guidance Active 07/24/17 ADELITA LEIVA MD Encounters Encounter Location Arrival/Admit Date Discharge/Depart Date Attending Provider Discharged Inpatient [facility] 07/23/17 10:26pm 4:52pm ADELITA LEIVA MD Registered Clinic [facility] 07/22/17 1:43pm NENO MARTIN Registered Clinic [facility] 07/21/17 11:52am NENO MARTIN
[2017-10-18 12:03] LABS: BASOPHILS % 0.3 % (0.0-1.0); EOSINOPHILS % 0.4 % (0.0-6.0); HEMATOCRIT 35.7 % (38.2-49.6); HEMOGLOBIN 11.8 g/dL (14.0-18.0); LYMPHOCYTES # (AUTO) 1.3 (1.0-3.2); MEAN CORPUSCULAR HEMOGLOBIN 26.1 pg (28-32); MEAN CORPUSCULAR HGB CONC 33.1 g/dL (31-35); MONOCYTES # (AUTO) 0.7 (0.2-0.8); MONOCYTES % 8.1 % (4.4-11.3); NEUTROPHILS # (AUTO) 6.9 (2.1-6.9); PLATELET COUNT 368 x10e3/uL (140-360); RED BLOOD COUNT 4.52 x10e6/uL (4.3-5.7); RED CELL DISTRIBUTION WIDTH 14.5 % (11.7-14.4)
[2017-10-18 12:22] LABS: ALANINE AMINOTRANSFERASE 32 IU/L (0-55); ALBUMIN/GLOBULIN RATIO 0.5 (0.8-2.0); ALKALINE PHOSPHATASE 95 IU/L (40-150); ANION GAP 15.2 mmol/L (8-16); BLOOD UREA NITROGEN 12 mg/dL (7-26); BUN/CREATININE RATIO 10 (6-25); CALCIUM 9.9 mg/dL (8.4-10.2); CARBON DIOXIDE 27 mmol/L (22-29); CHLORIDE 93 mmol/L (98-107); CREATININE, SERUM 1.16 mg/dL (0.72-1.25); EST GLOMERULAR FILTRATION RATE > 60 ML/MIN (60-); GLUCOSE 345 mg/dL (74-118); POTASSIUM 4.2 mmol/L (3.5-5.1); SODIUM 131 mmol/L (136-145)
[2017-10-18] MEDS ORDERED: SODIUM CHLORIDE 0.9% 50ML 50 ML ONE (13:04)
[2017-10-18] MEDS ORDERED: IOPAMIDOL 370 MG/ML 200 ML INFUS..BTL INJ ONE (13:04)
--- NOTE | 2017-10-18 13:56 | Diagnostic Imaging Report ---
CT chest, abdomen and pelvis with intravenous contrast Indication: Lung mass, right renal abscess Technique: Thin collimation axial images obtained from the thoracic inlet to the level of the pubic symphysis following the uneventful administration of 100 cc of low osmolar, nonionic intravenous contrast. RADIATION DOSE: Total DLP: 1089.6 mGy*cm Estimated effective dose: (DLP x 0.015 x size factor) mSv CTDIvol has been reviewed. It is below the limits set by the Radiation Protocol Committee (RPC). Comparison: Renal ultrasound 07/24/2017 for abscess drainage. Chest x-ray 07/26/2017 CHEST FINDINGS: Lymph nodes: No enlarged axillary, supraclavicular, mediastinal, or hilar lymph nodes. Thyroid: Visualized portions are normal. Mediastinum: Anterior pericardial effusion measures 14 mm. Heart and great vessels enhance normally without filling defects. The esophagus is normal. Lungs: Right Lung: Posterior subsegmental atelectasis. No mass or infiltrate. Left Lung: Posterior subsegmental atelectasis. Nodule along the major fissure measures 8 mm. Pleura:No pleural effusion or pleural based mass ABDOMEN FINDINGS: Liver: Decreased attenuation suggestive of steatosis. No evidence for mass. Gallbladder: Present with a subcentimeter intraluminal gallstone. No biliary ductal dilatation. Pancreas: Normal attenuation without mass or ductal dilatation. Spleen: Normal in size without mass. Adrenal Glands: No evidence for mass. Kidneys: Right: Normal enhancement. Low attenuating lesion in the lateral lower pole cortex measures 10 mm. This could correspond to the 3 cm renal abscess seen on ultrasound. There is an adjacent cortical calcification measuring 3 mm. No enhancement to suggest active inflammation. No hydronephrosis. Mild perinephric inflammation. Left: Normal enhancement. No cortical mass. No hydronephrosis. Mild perinephric inflammation. Lymph Nodes: No enlarged abdominal or periaortic lymph nodes.. Aorta: Normal in diameter. PELVIS FINDINGS: Bowel: Stomach: Normal in caliber with normal wall thickness. Small Bowel: Normal in caliber with normal wall thickness. Large Bowel: Normal in caliber with normal wall thickness. Appendix: Normal appendix. Bladder: Normal. Lymph Nodes: No enlarged mesenteric, pelvic, or inguinal lymph nodes.. No free fluid or fluid collection. Bones: No focal osseous lesions. Soft tissues: Mild bilateral gynecomastia. IMPRESSION: 1. No evidence of pulmonary mass or lymphadenopathy to suggest malignancy. 2. Hepatic steatosis. 3. Cholelithiasis. Normal biliary tree. 4. 10 mm low attenuating lesion in the right kidney may correspond to the treated renal abscess. No CT evidence of inflammation. Bilateral perinephric inflammation may be the result of lymphatic congestion. Please correlate for signs/symptoms of UTI. 5. No evidence for bowel obstruction or inflammation. Signed by: Dr. Mignon Crowell MD on 10/18/2017 1:53 PM
[2017-10-18 14:23] LABS: BILIRUBIN,URINE NEGATIVE (NEGATIVE); CLARITY,URINE SL CLOUDY (CLEAR); COLOR,URINE YELLOW (YELLOW); KETONES,URINE NEGATIVE (NEGATIVE); LEUKOCYTE ESTERASE ,URINE NEGATIVE (NEGATIVE); NITRITE,URINE NEGATIVE (NEGATIVE); PROTEIN,URINE DIPSTICK NEGATIVE (NEGATIVE); URINE UROBILINOGEN 0.2 mg/dL (0.2 - 1)
[2017-10-18 14:33] LABS: AMORPHOUS SEDIMENT,URINE FEW (FEW); EPITHELIAL CELLS,URINE FEW /LPF; RBC,URINE 0-5 /HPF (0-5); WBC,URINE (MAN) 0-5 /HPF (0-5)
[2017-10-18] MEDS ORDERED: DEXTROSE 50% SYRINGE 50 ML IV PRN (15:45)
[2017-10-18] MEDS ORDERED: MORPHINE SULFATE 2 MG/ML SYR IV PRN (15:45)
[2017-10-18 17:00] VITALS: BP_SYST 139; BP_DIAS 72; BP_DIAS 73
[2017-10-18] MEDS: INSULIN REGULAR, HUMAN 100 UNIT/1 ML 3ML VIAL SQ SCH ×2 (17:00→21:12)
[2017-10-18 17:38] VITALS: BP 139/73
[2017-10-18] MEDS: MEROPENEM 1 GM VIAL IV SCH (18:13)
[2017-10-18] MEDS: SODIUM CHLORIDE 0.9% 1000ML 1,000 ML IV SCH ×2 (18:13→23:43)
[2017-10-18] MEDS: VANCOMYCIN 1GM/NS 250 ML 250 ML IV SCH (18:13)
[2017-10-18 19:35] VITALS: BP 132/64
[2017-10-18] MEDS ORDERED: MEROPENEM 1GM 100 ML IV SCH (22:00)
[2017-10-19] VITALS (10 sets, daily range): BP systolic 120–155; BP diastolic 63–77
[2017-10-19] MEDS: MEROPENEM 1 GM VIAL IV SCH ×3 (00:01→17:00)
--- NOTE | 2017-10-19 00:18 | Consultation ---
DATE OF CONSULTATION: REASON FOR CONSULTATION: Fever, ankle pain and swelling. HISTORY OF PRESENT ILLNESS: This patient who is a 51-year-old male, very pleasant, just finished a course of 8 weeks for MSSA bacteremia with endocarditis and septic emboli to the kidney. The patient doing well. After he finished 8 weeks of IV NSAIDs, he started to have fever and chills. A blood culture was done as outpatient and was negative. Then, he started to have pain in his ankle. He was supposed to get an MRI of his ankle, but it is not done yet. The patient comes in with worsening condition of fever and chills, not feeling well, which he had for 2 weeks. Before his infection, he denies any other medical problem. LABORATORY DATA: White count 8.9, hemoglobin 11.8, hematocrit 35. Sodium 131, potassium 4.2, 11.3. Creatinine 1.16. His glucose was 345. PAST MEDICAL HISTORY: Significant for diabetes, obesity, and recently infection as mentioned above, endocarditis. PAST SURGICAL HISTORY: As mentioned abscess. ALLERGIES: NKA. SOCIAL HISTORY: There is no smoking, drug abuse, alcohol abuse. FAMILY HISTORY: Otherwise unremarkable. REVIEW OF SYSTEMS: HEENT: Negative. PULMONARY: Negative. CARDIAC: Negative. : Negative. SKIN: There is no rash. IMAGING DATA: He had a CAT scan recently, where there was concern about some lung septic emboli. The CAT scan showed no evidence of pulmonary mass or lymphadenopathy just malignancy, but there is cholelithiasis. There is a 10 mm low attenuation in the right kidney that corresponds to history of renal abscess. The CAT scan of the chest shows no renal mass, no lung mass, small nodule major fissure about 8 mm. His culture is still pending. His laboratory data also showed a white count 8.9, hemoglobin 11.8. IMPRESSION: 1. Fever. 2. Ankle pain and swelling, concerned about infected joint. Will get blood cultures. Will put him on vancomycin and meropenem. Recheck complete blood cell count, recheck chemistry panel. Discussed with attending. Discussed with the patient. If there is effusion in the ankle, would need to aspirate, send for cell count and differential, protein, glucose, crystals, and culture and sensitivity. The differential diagnosis does include infection versus other such as arthritis. 4. Diabetes. 5. Will follow with you. Thank you. Job#: [id number]
[2017-10-19] MEDS: ACETAMINOPHEN 325 MG TAB PO PRN ×2 (01:25→13:14)
[2017-10-19] MEDS: VANCOMYCIN 1GM/NS 250 ML 250 ML IV SCH ×2 (05:10→18:00)
[2017-10-19] MEDS: SODIUM CHLORIDE 0.9% 1000ML 1,000 ML IV SCH (05:10)
[2017-10-19 07:07] LABS: BASOPHILS % 0.2 % (0.0-1.0); EOSINOPHILS # (AUTO) 0.1 (0.0-0.4); EOSINOPHILS % 1.4 % (0.0-6.0); HEMATOCRIT 30.4 % (38.2-49.6); LYMPHOCYTES # (AUTO) 1.6 (1.0-3.2); LYMPHOCYTES % 18.2 % (18.0-39.1); MEAN CORPUSCULAR HEMOGLOBIN 26.4 pg (28-32); MEAN CORPUSCULAR HGB CONC 32.9 g/dL (31-35); MEAN CORPUSCULAR VOLUME 80.2 fL (81-99); MONOCYTES # (AUTO) 0.9 (0.2-0.8); MONOCYTES % 10.3 % (4.4-11.3); NEUTROPHILS # (AUTO) 6.3 (2.1-6.9); NEUTROPHILS % 69.2 % (38.7-80.0); PLATELET COUNT 325 x10e3/uL (140-360); RED BLOOD COUNT 3.79 x10e6/uL (4.3-5.7); RED CELL DISTRIBUTION WIDTH 14.3 % (11.7-14.4)
[2017-10-19 07:31] LABS: ANION GAP 12.4 mmol/L (8-16); BLOOD UREA NITROGEN 12 mg/dL (7-26); BUN/CREATININE RATIO 13 (6-25); CALCIUM 8.8 mg/dL (8.4-10.2); CARBON DIOXIDE 27 mmol/L (22-29); CHLORIDE 98 mmol/L (98-107); CREATININE, SERUM 0.94 mg/dL (0.72-1.25); EST GLOMERULAR FILTRATION RATE > 60 ML/MIN (60-); GLUCOSE 200 mg/dL (74-118); POTASSIUM 4.4 mmol/L (3.5-5.1); SODIUM 133 mmol/L (136-145)
[2017-10-19] MEDS: INSULIN REGULAR, HUMAN 100 UNIT/1 ML 3ML VIAL SQ SCH ×4 (08:15→21:00)
[2017-10-19] MEDS: ONDANSETRON HCL 4 MG ORAL DISINTEGRATING TAB SL PRN (13:20)
--- NOTE | 2017-10-19 13:27 | Diagnostic Imaging Report ---
MRI of the left ankle without contrast. History: Cellulitis. Osteomyelitis. Infection. Swelling. Technique: Utilizing a high-field 1.5T magnet, the following sequences were acquired: PD FS in all 3 planes with additional axial PD. Comparison: None. Findings: Achilles tendon and plantar fascia: The Achilles tendon and plantar fascia are normal. Cartilage and bone: There is extensive abnormal bone marrow edema centered in the anterior talus with involvement of the adjacent navicular bone and to a lesser extent the adjacent anterior calcaneus. There is associated cortical disruption along the anterior aspect of the talus best seen on series 6 image 14. There is marked bone marrow edema and adjacent soft tissue edema. There is an associated tibiotalar joint effusion and synovitis. The findings are consistent with osteomyelitis and possibly septic arthritis. Medial ankle: The deltoid ligament complex is intact. The medial flexor tendons are normal. There is a physiologic amount of fluid within the tendon sheath of FHL. Lateral ankle: The anterior talofibular, calcaneofibular, and posterior talofibular ligaments are intact. The syndesmotic ligaments are intact. The peroneal tendons are normal. Anterior ankle: The anterior extensor tendons are normal. Other findings: There is extensive soft tissue edema about the visualized ankle. Impression: Findings worrisome for osteomyelitis, septic arthritis and cellulitis centered in the anterior talus as described above. Signed by: Dr. Victor Manuel Mcpherson M.D. on 10/19/2017 1:24 PM
[2017-10-19] MEDS ORDERED: ACETAMINOPHEN/CODEINE 300MG - 30MG TAB PO PRN (15:15)
[2017-10-20] VITALS (7 sets, daily range): BP systolic 108–169; BP diastolic 63–80
[2017-10-20] MEDS: MEROPENEM 1 GM VIAL IV SCH ×3 (00:26→17:00)
[2017-10-20] MEDS: ACETAMINOPHEN 325 MG TAB PO PRN (00:26)
[2017-10-20] MEDS: VANCOMYCIN 1GM/NS 250 ML 250 ML IV SCH (08:00)
[2017-10-20] MEDS: INSULIN REGULAR, HUMAN 100 UNIT/1 ML 3ML VIAL SQ SCH ×4 (08:00→21:08)
[2017-10-20] MEDS: METFORMIN HCL 500 MG TAB PO SCH ×2 (11:00→17:00)
[2017-10-20] MEDS: DAPTOMYCIN 800 MG in SODIUM CHLORIDE 0.9% 100 ML IV SCH (14:30)
--- NOTE | 2017-10-20 14:32 | Consultation ---
DATE OF CONSULTATION: October 20, 2017 CARDIOLOGY CONSULTATION REASON FOR CONSULTATION: Staph bacteremia. HISTORY OF PRESENT ILLNESS: Mr. Medellin is a very pleasant 51-year-old gentleman with past medical history of type 2 diabetes with complications, initially diagnosed in 2006 with end-organ damage being diabetic retinopathy as well as neuropathy, who also has an unusual history that really started at the end of 2016. Patient initially had a scalp laceration in 2016 which was left untreated for a prolonged period of time and eventually came to the emergency room here and received p.o. antibiotic therapy which resolved this. He had in July of 2016 developed flank pain and was found to have a left renal abscess that underwent percutaneous draining and was treated with IV antibiotic therapy. Patient had a transthoracic echocardiogram performed on August 26, 2017, and at that point in time this transthoracic echocardiogram was suspicious for the presence of a small anterior mitral valve leaflet vegetation. Nonetheless, patient was treated with IV antibiotics to cover both endocarditis as well as treatment of this renal abscess and completed antibiotic therapy on September 25, 2017. Patient reports that October 05, 2017, he started developing recurrence of fevers, chills, generalized aches and malaise. He was concerned that he had a sinus infection, went to his PCP and was given p.o. Levaquin therapy. He completed the sinus therapy, felt a little bit better but more recently has been having spiking fevers up to 104, rigors, chills, and just frankly septic. He also in the span of a week has noted that his left ankle has been swollen and the left joint space in his ankle joint has been severely swollen and excruciatingly painful with ambulation. He was hospitalized for his severe pain, and MRI of the ankle confirms the presence of septic arthritis and perhaps some osteomyelitis as well. An abdomen and pelvis CT was done, showing a 10 mm low-attenuation lesion in the right kidney which may correspond to the treated renal abscess, and chest CT seemed unremarkable. Blood cultures were checked on October 18, which found the presence of Staph aureus 2 out of 2 cultures pending speciation. Due to recurrent bacteremia, Cardiology was consulted for consideration of a transesophageal echocardiogram. Patient denies any chest pain or discomfort. He denies any orthopnea, PND or any heart failure-type symptoms. Denies any TIA or stroke-like symptoms either. Denies any new rashes except for warmth and redness around the left ankle region. PAST MEDICAL HISTORY 1. Type 2 diabetes diagnosed in 2006. 2. Diabetic retinopathy with a prior history of right eye surgery. 3. History of right renal abscess status post percutaneous drainage with MRSA back in July of 2017 and a history of presumably endocarditis based on a finding of vegetation on transthoracic echocardiogram. PAST SURGICAL HISTORY 1. History of right renal drainage. 2. History of right eye surgery for diabetic issues. FAMILY HISTORY: Mother is in her 70s, alive, has hypertension and diabetes. Father is unknown. No family history of coronary disease. SOCIAL HISTORY: He is a lifelong nonsmoker, denies any alcohol or illicit drug use. ALLERGIES: NO KNOWN DRUG ALLERGIES. CURRENT MEDICATIONS: Include 1. Meropenem 1 g q.8 h. IV. 2. Acetaminophen p.r.n. 3. Zofran p.r.n. 4. Daptomycin IV. 5. Metformin 500 mg b.i.d. 6. Morphine p.r.n. 7. Subcutaneous heparin for DVT prophylaxis. 8. Vancomycin was discontinued. REVIEW OF SYSTEMS GENERAL: Positive for fevers, chills, malaise. HEENT: No headaches. Has chronically diminished vision in both eyes, right more than left, due to diabetes issues. No hearing issues and denies any current nasal stuffiness or sore throat. RESPIRATORY: Denies any pleuritic chest pain or cough. CARDIOVASCULAR: Denies any chest pain, orthopnea, PND. Does have left leg ankle swelling as noted above. GI: Denies any dysphagia, nausea, vomiting, bright red blood per rectum, melena, hematemesis. : Denies any dysuria or changes in urinary frequency. MUSCULOSKELETAL: Positive for severe left ankle joint pain secondary to septic arthritis. Remainder of joints are unremarkable. HEMATOLOGY: No easy bruising or bleeding. NEUROLOGIC: Positive for neuropathy and decreased vision but no history of TIA or stroke. REMAINDER OF REVIEW OF SYSTEMS: Negative otherwise mentioned. PHYSICAL EXAMINATION VITAL SIGNS: Height of 71 inches, weight of 226 pounds. BMI is 31.6. Temperature T-max was 101.9, currently 97.5. Pulse of 69. Respiratory rate 20. Blood pressure 154/78. O2 sat 95% on room air. IN GENERAL: This is a well-nourished, well-developed gentleman who is currently in no apparent distress. HEENT: Normocephalic, atraumatic. Pupils are equally round and reactive to light. Extraocular movements are intact. Oropharynx is clear. NECK: No elevation of jugular venous pulsation, no carotid bruits. CARDIOVASCULAR: Regular in rate and rhythm. Normal S1 and S2. A soft 1/6 systolic murmur at the left lower sternal border. LUNGS: Relatively clear to auscultation bilaterally with good air entry. ABDOMEN: Soft, nontender, nondistended, with normoactive bowel sounds. BACK: No costovertebral angle tenderness. EXTREMITIES: Warm. There is asymmetric swelling in the left ankle region with warmth, decreased range of motion and compatible with septic arthritis. There are 1 to 2+ bilateral pedal pulses, 2+ bilateral radial pulses. NEUROLOGIC: Cranial nerves 2-12, except for slightly decreased vision, are intact. Strength seems to be preserved, and he is able to move all 4 extremities. LABS: White count of 9.0, hemoglobin 10.0, hematocrit 30.4, platelets of 325. Sodium 133, potassium 4.4, chloride 98, bicarb 27, BUN 12, creatinine 0.94, glucose of 200. AST 21, ALT 32, alk phos 95. Total protein 8.6, albumin of 3.0. Last INR was at 1.29. UA is unremarkable. IMAGING: As noted above per HPI. EKG is unavailable. DIAGNOSES 1. Left ankle septic arthritis. 2. Recurrent staphylococcus bacteremia. 3. History of mitral valve endocarditis. 4. Type 2 diabetes with complications. 5. History of right renal abscess. 6. Obesity. PLAN/RECOMMENDATIONS 1. Will go ahead and follow up on primary care and ID's requests and plan for a transesophageal echocardiogram tomorrow, n.p.o. after midnight. 2. Will go ahead and check EKG. 3. Will recommend antibiotics per ID service. Will continue to follow this patient with you. Thank you for this referral. Job#: [id number]
--- NOTE | 2017-10-20 15:05 | Diagnostic Imaging Report ---
PROCEDURE:CHEST XRAY LINE PLACEMENT TECHNIQUE:Portable AP chest INDICATION:Line placement COMPARISON:[facility], , CHEST XRAY LINE PLACEMENT, 08/12/2017, 10:34. FINDINGS: Right PICC terminating in the low SVC. Clear lungs. No pleural effusions. Enlarged cardiac silhouette with mild central vascular prominence. Intact skeleton. CONCLUSION: 1. Right PICC terminating in the low SVC. 2. Mild cardiomegaly and central vascular congestion. Dictated by: Oren Taylor M.D. on 10/20/2017 at 15:07 Electronically approved by: Oren Taylor M.D. on 10/20/2017 at 15:07
[2017-10-20] MEDS: MORPHINE SULFATE 2 MG/ML SYR IV PRN (17:00)
[2017-10-20] MEDS: HEPARIN SOD (PORCINE) 5,000 UNIT/ML VIAL SC SCH (20:56)
[2017-10-20] MEDS ORDERED: VANCOMYCIN HCL 1.5 GM in SODIUM CHLORIDE 0.9% 250ML 300 ML IV SCH (21:00)
[2017-10-21] VITALS (8 sets, daily range): BP systolic 98–160; BP diastolic 57–85
[2017-10-21] MEDS: MEROPENEM 1 GM VIAL IV SCH ×3 (00:40→17:21)
[2017-10-21] MEDS: INSULIN REGULAR, HUMAN 100 UNIT/1 ML 3ML VIAL SQ SCH ×4 (07:30→20:14)
[2017-10-21] MEDS: METFORMIN HCL 500 MG TAB PO SCH ×2 (08:00→17:21)
[2017-10-21] MEDS: HEPARIN SOD (PORCINE) 5,000 UNIT/ML VIAL SC SCH ×2 (08:50→20:00)
[2017-10-21] MEDS ORDERED: BUPIVACAINE HCL 0.5% INJ 30 ML VIAL INJ ONE (08:59)
[2017-10-21] MEDS ORDERED: BACITRACIN 50,000 UNIT VIAL ONE (08:59)
--- NOTE | 2017-10-21 13:29 | Consultation ---
DATE OF CONSULTATION: October 20, 2017 CHIEF COMPLAINT AND HISTORY OF CHIEF COMPLAINT: Mr. Medellin is a most pleasant 51-year-old gentleman with painful swollen left ankle. He states that he just finished an 8-week course of treatment for MRSA with bacteremia and endocarditis, septic emboli to the kidney. He was treated with IV NSAIDs and developed fever and chills when ultimately the blood culture yielded the diagnosis of bacteremia. He has no complaints now other than a red, hot swollen left ankle. PAST MEDICAL HISTORY: Significant for diabetes and endocarditis as previously mentioned. He is under the care of cardiology, as well as infectious disease and internal medicine currently. Renal is working with him as well. ALLERGIES: HE HAS NO KNOWN DRUG ALLERGIES. The patient has no history of smoking, drug abuse or alcohol abuse. FAMILY HISTORY: He is and lives at home with his spouse. REVIEW OF SYSTEMS HEENT: Negative. PULMONARY: Negative. CARDIAC: Negative at this point. SKIN: There is no rash, but there is redness around the ankle with significant swelling. MRI performed here at the hospital shows a concern for osteomyelitis particularly around the talus and possible septic arthritis in the joint itself. Further review of the patient's symptoms, the patient states that approximately 4 weeks prior to this joint becoming red, hot and swollen at the ankle on the left side, he had a similar episode with red, hot swollen left knee. He states that passed during the previous treatment with NSAIDs. The knee is currently asymptomatic with full range of motion and no subsequent sequelae. The left ankle is not only red, hot and swollen, but very tender to palpation. Range of motion is very limited. Radiographs are grossly negative. I have recommended that the patient go to the OR for more definitive diagnosis. We will perform an I and D with deep joint exploration and lavage, as well as bone biopsy and bone culture to differentiate arthritis versus osteomyelitis. Phone consultation with Dr. Odell with regards to this patient. I will follow him postoperatively. Continue current care. Job#: [id number] JESSICA
--- NOTE | 2017-10-21 13:53 | Operative Report ---
DATE OF PROCEDURE: October 21, 2017 PREOPERATIVE DIAGNOSIS: Osteomyelitis of the left ankle. POSTOPERATIVE DIAGNOSIS: Osteomyelitis of the left ankle. OPERATION: Incision and drainage of the left ankle with bone biopsy and joint irrigation. ANESTHESIA: General endotracheal. HEMOSTASIS: Left thigh tourniquet at 350 mmHg. PROCEDURE IN DETAIL: The patient was taken to the operating room in a mildly sedated state, and placed upon the operating table in the supine position. Following induction of general anesthetic, the left lower extremity was elevated to 60 degrees to exsanguinate before inflating the pneumatic thigh tourniquet to 350 mmHg for hemostasis. The left lower extremity was placed upon the operating table. Anterolateral ankle joint incision was placed overlying the talus on the left foot. The incision was deepened via sharp and blunt dissection down to the level of the anterior talar body, as well as the ankle joint. This joint was explored. Cartilage was intact and clean. There is no purulent exudate. No foul odor and no obvious bone breakdown. Bone cultures were obtained from the talus. A bone biopsy was obtained via in the anterior talar body of the sparing areas of cartilage. The cultures and pathology biopsy were sent. The wound and joint itself was irrigated with Simpulse utilizing Bacitracin and normal saline via Simpulse irrigation. A 3000 bag was used. The area tolerated the irrigation well. Bones and joints appeared to be healthy and viable with no obvious breakdown. After irrigation, deep closure over the capsule and joint was 3-0 Vicryl. A Beaufort drain was advanced into the area of the ankle joint and anterior talus to facilitate any further drainage. The wound was closed with skin samy overlying. With this having been accomplished, the irrigation and biopsy having been completed, as well as bone cultures, release of the pneumatic thigh tourniquet showed normal hyperemic flush to all digits of the left foot and ankle. The patient left the operating room with vital signs stable and apparent satisfactory condition having tolerated both anesthetic and procedure very well. The areas of surgery were blocked with 0.5% Marcaine and mildly compressive dressing applied. I will place him in a cam walker to facilitate healing of the joint and remove the drain within the next several days awaiting the bone biopsy and culture results for more definitive care. Job#: [id number] RI
[2017-10-21] MEDS: DAPTOMYCIN 800 MG in SODIUM CHLORIDE 0.9% 100 ML IV SCH (14:00)
[2017-10-21] MEDS: MORPHINE SULFATE 2 MG/ML SYR IV PRN ×2 (15:00→23:27)
[2017-10-21 15:26] LABS: ALPHA 2 GLOBULIN URINE PEP 9.7 % (.)
[2017-10-21] MEDS ORDERED: ALTEPLASE RECOMBINANT 2 MG/2 ML VIAL IV PRN (16:30)
[2017-10-21] MEDS ORDERED: SEVOFLURANE INHAL SOLN 250 ML PEN BTL ONE (17:24)
[2017-10-21] MEDS ORDERED: ACETAMINOPHEN 1000 MG/100 ML IV ONE (17:24)
[2017-10-21] MEDS ORDERED: PROPOFOL IV EMULSION 10 MG/ML 20 ML VIAL ONE (17:24)
[2017-10-21] MEDS ORDERED: LIDOCAINE HCL 2% LOCAL INJ 5 ML SDV VIAL INJ ONE (17:24)
[2017-10-21] MEDS ORDERED: MIDAZOLAM HCL 2 MG/2 ML VIAL ONE (17:30)
[2017-10-21] MEDS ORDERED: FENTANYL CITRATE/PF 100MCG/2 ML INJ ONE (17:30)
--- NOTE | 2017-10-21 21:31 | Consultation ---
DATE OF CONSULTATION: October 21, 2017 PULMONARY CONSULTATION Patient of Dr. Martinez, Dr. Quintana, Dr. Odell, Dr. Montano, Dr. Wells. HISTORY: Charming but unfortunate 51-year-old gentleman with history of diabetes, diagnosed in 2006; history of recent renal abscess, treated with IV antibiotics for staph infection. Patient says after stopping his antibiotics, fever and chills recurred particularly at night. PAST MEDICAL HISTORY: He has a history of BPH, history of right renal abscess, gallstones, tiny pulmonary nodules particularly right lower lobe. Patient has a history of hypertension. FAMILY HISTORY: Positive for diabetes. SOCIAL HISTORY: Smoked 2 packs a day for 15 years. 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 In July, the transthoracic echo suspicious for presence of a small anterior mitral valve leaflet vegetation. Had completed his long-term course of antibiotics, September 25, initially was started in July. On September the , the patient began to experience sinusitis and fevers up to 104. Also severe pain and swelling of the left ankle. MRI revealed out osteomyelitis of the talus suspicious for that. Again is septic with Staph aureus in 2 blood cultures. He has a history of diabetic retinopathy with right eye surgery, renal abscess, percutaneous drainage in July of 2017. PHYSICAL EXAMINATION: GENERAL: He is a well-developed white male, in no acute distress, complaining of some discomfort in the ankle where it was biopsied. HEAD: Normocephalic, atraumatic. EYES: Extraocular movements intact. LUNGS: Clear. HEART: Regular rhythm. ABDOMEN: Nontender. EXTREMITIES: There is swelling of the left ankle. IMPRESSION: 1. Endocarditis with septic joint. Plan is to resume therapy of Staph aureus infection. Sensitivities revealed sensitive to vancomycin, oxacillin resistant i.e. methicillin-resistant Staphylococcus aureus. Case discussed with Dr. Martinez. 2. Pulmonary nodule is subcentimeter, etiology unclear, may be related to sepsis or other etiology, it is too small to biopsy at this time. Continue to monitor. Primary process is that of Staph sepsis. Thank you. Job#: [id number]
[2017-10-21] MEDS: ACETAMINOPHEN 325 MG TAB PO PRN (22:46)
[2017-10-22] VITALS (13 sets, daily range): BP systolic 96–151; BP diastolic 56–88
[2017-10-22 05:30] LABS: BASOPHILS % 0.3 % (0.0-1.0); EOSINOPHILS # (AUTO) 0.2 (0.0-0.4); EOSINOPHILS % 2.3 % (0.0-6.0); HEMOGLOBIN 9.8 g/dL (14.0-18.0); LYMPHOCYTES # (AUTO) 1.9 (1.0-3.2); LYMPHOCYTES % 23.6 % (18.0-39.1); MEAN CORPUSCULAR HEMOGLOBIN 26.1 pg (28-32); MEAN CORPUSCULAR HGB CONC 32.7 g/dL (31-35); MONOCYTES # (AUTO) 0.7 (0.2-0.8); MONOCYTES % 8.7 % (4.4-11.3); NEUTROPHILS # (AUTO) 5.2 (2.1-6.9); NEUTROPHILS % 64.7 % (38.7-80.0); PLATELET COUNT 392 x10e3/uL (140-360); RED BLOOD COUNT 3.75 x10e6/uL (4.3-5.7); RED CELL DISTRIBUTION WIDTH 14.6 % (11.7-14.4)
[2017-10-22 05:46] LABS: INR 1.21; PROTHROMBIN TIME 14.4 seconds (11.9-14.5)
[2017-10-22 05:50] LABS: ALANINE AMINOTRANSFERASE 35 IU/L (0-55); ALBUMIN 2.3 g/dL (3.5-5.0); ALBUMIN/GLOBULIN RATIO 0.5 (0.8-2.0); ALKALINE PHOSPHATASE 95 IU/L (40-150); ANION GAP 14.2 mmol/L (8-16); BLOOD UREA NITROGEN 12 mg/dL (7-26); BUN/CREATININE RATIO 15 (6-25); CALCIUM 9.1 mg/dL (8.4-10.2); CARBON DIOXIDE 27 mmol/L (22-29); CHLORIDE 96 mmol/L (98-107); CREATININE, SERUM 0.78 mg/dL (0.72-1.25); EST GLOMERULAR FILTRATION RATE > 60 ML/MIN (60-); GLUCOSE 169 mg/dL (74-118); POTASSIUM 4.2 mmol/L (3.5-5.1); SODIUM 133 mmol/L (136-145)
[2017-10-22 06:17] LABS: FERRITIN 960.95 ng/mL (21.81-274.66)
[2017-10-22] MEDS: INSULIN REGULAR, HUMAN 100 UNIT/1 ML 3ML VIAL SQ SCH ×4 (07:30→21:00)
[2017-10-22] MEDS: METFORMIN HCL 500 MG TAB PO SCH ×2 (08:00→17:15)
[2017-10-22] MEDS: HEPARIN SOD (PORCINE) 5,000 UNIT/ML VIAL SC SCH ×2 (08:36→21:00)
[2017-10-22] MEDS ORDERED: SODIUM CHLORIDE 0.9% 1000ML 1,000 ML ONE (10:53)
[2017-10-22] MEDS: RIFAMPIN 300 MG CAP PO SCH ×2 (11:00→21:00)
[2017-10-22] MEDS ORDERED: BENZOCAINE 20% SPR 60 ML CAN ONE (11:00)
[2017-10-22] MEDS: DAPTOMYCIN 800 MG in SODIUM CHLORIDE 0.9% 100 ML IV SCH (15:14)
[2017-10-22] MEDS ORDERED: RIFABUTIN 150 MG CAP PO SCH (17:00)
[2017-10-22] MEDS ORDERED: PROPOFOL IV EMULSION 10 MG/ML 20 ML VIAL ONE (18:14)
[2017-10-22] MEDS ORDERED: MIDAZOLAM HCL 2 MG/2 ML VIAL ONE (18:24)
[2017-10-22] MEDS: MORPHINE SULFATE 2 MG/ML SYR IV PRN (22:28)
[2017-10-22] MEDS: ONDANSETRON HCL 4 MG ORAL DISINTEGRATING TAB SL PRN (22:29)
[2017-10-23] VITALS (8 sets, daily range): BP systolic 116–131; BP diastolic 63–78
[2017-10-23] MEDS: INSULIN REGULAR, HUMAN 100 UNIT/1 ML 3ML VIAL SQ SCH ×4 (08:57→21:43)
[2017-10-23] MEDS: RIFAMPIN 300 MG CAP PO SCH ×2 (08:57→21:44)
[2017-10-23] MEDS: METFORMIN HCL 500 MG TAB PO SCH ×2 (08:57→17:36)
[2017-10-23] MEDS: HEPARIN SOD (PORCINE) 5,000 UNIT/ML VIAL SC SCH ×2 (08:58→21:42)
[2017-10-23] MEDS: MORPHINE SULFATE 2 MG/ML SYR IV PRN ×2 (12:06→23:17)
[2017-10-23] MEDS: DAPTOMYCIN 800 MG in SODIUM CHLORIDE 0.9% 100 ML IV SCH (15:28)
[2017-10-23] MEDS: ONDANSETRON HCL 4 MG ORAL DISINTEGRATING TAB SL PRN (18:55)
[2017-10-24] VITALS: BP 123/75
[2017-10-24] MEDS: ACETAMINOPHEN 325 MG TAB PO PRN (00:27)
[2017-10-24 04:00] VITALS: BP 138/85
[2017-10-24 07:56] VITALS: BP 140/76
[2017-10-24] MEDS: MORPHINE SULFATE 2 MG/ML SYR IV PRN ×2 (09:24→16:16)
[2017-10-24 09:25] VITALS: BP 140/76
[2017-10-24] MEDS: HEPARIN SOD (PORCINE) 5,000 UNIT/ML VIAL SC SCH (09:25)
[2017-10-24] MEDS: INSULIN REGULAR, HUMAN 100 UNIT/1 ML 3ML VIAL SQ SCH ×2 (09:25→11:30)
[2017-10-24] MEDS: METFORMIN HCL 500 MG TAB PO SCH (09:25)
[2017-10-24] MEDS: RIFAMPIN 300 MG CAP PO SCH (09:25)
[2017-10-24 12:25] VITALS: BP 150/79
[2017-10-24] MEDS: DAPTOMYCIN 800 MG in SODIUM CHLORIDE 0.9% 100 ML IV SCH (13:30)
--- NOTE | 2017-10-24 13:41 | Discharge Summary ---
PRIMARY CARE PHYSICIAN: Dr. Joaquín Quintana. FINAL DIAGNOSIS: Methicillin-resistant Staphylococcus aureus sepsis, present on admission. SECONDARY DIAGNOSES 1. Diabetes. 2. Dyslipidemia. CONSULTANTS: Dr. Montano, podiatry. Dr. Wells, cardiology. Dr. Horta, hematology/oncology. Dr. Abhi Avila, urology. Dr. Shaffer, us administrative law judge. PROCEDURES/STUDIES PERFORMED: 1. Left ankle incision and drainage. 2. PICC line placement. 3. Left ankle MRI. 4. Abdominal and chest CT. HISTORY: Per H\T\P HOSPITAL COURSE: The patient was admitted. As expected his blood grew out MRSA and repeat blood culture is negative. The patient also has septic arthritis of left ankle. Incision and drainage was done. So far the culture is showing Staph aureus. Most likely this is going to be MRSA again. Bone biopsy was negative for osteomyelitis. Transesophageal echocardiogram was done. There was no evidence of vegetation. The patient does have elevated protein, albumin gradient. At this time, workup is negative for multiple myeloma. The patient will be going home on Daptomycin for 12 weeks. He will also follow up with Dr. Montano in 3 days and also follow up with Dr. Odell in 1 week. He received heparin subcu for DVT prophylaxis. The patient was seen and examined today. It took 32 minutes total to discharge this patient. CONDITION ON DISCHARGE: Improved. DISCHARGE MEDICATIONS: Please see medication reconciliation form. ADELITA LEIVA M.D. Job#: [id number] cc:JOAQUÍN QUINTANA MD
--- NOTE | 2017-10-24 15:54 | Progress Note ---
DATE: October 24, 2017 SUBJECTIVE: Mr. Medellin is doing well. He has no new complaints. OBJECTIVE GENERAL: Alert, oriented, does not seem to be in any acute distress. VITAL SIGNS: Stable, currently afebrile. HEENT: Normocephalic. Nonicteric. NECK: Supple. CHEST: Clear bilaterally. HEART: S1 and S2, no murmur. ABDOMEN: Soft. Bowel sounds present. EXTREMITIES: No edema. IMPRESSION: Recurrent bacteremia with methicillin-resistant Staphylococcus aureus. PLAN: He just finished 2 months of IV antibiotics. Will give him 3 months this time with IV Daptomycin. Weekly CBC. Weekly chem panel. The patient had an episode of loose stools yesterday, but today he is doing good. Will observe. Recommend he do probiotic, . Call me if he gets any worse. Concerned about diabetes. Follow up as an outpatient. Will follow. Job#: [id number]
[2017-10-24] MEDS ORDERED: CLOTRIMAZOLE15 GM TOP (16:01)
[2017-10-24 17:03] VITALS: BP 122/60
== END 2017-10-24 18:08 | disposition home or self-care (01) | DRG 872 ==
LOC: ER 10:34 → ERHOLD 16:34 → MED/SURG3 16:35
PROVIDERS: ADMIT Internal Medicine; ATTEND Internal Medicine
PROC: 02HV33Z Insertion of Infusion Device into Superior Vena Cava, Percutaneous Approach (ICD-10-PCS; 2017-10-20)
PROC: 0SBG0ZX Excision of Left Ankle Joint, Open Approach, Diagnostic (ICD-10-PCS; 2017-10-21)
PROC: 0S9G0ZX Drainage of Left Ankle Joint, Open Approach, Diagnostic (ICD-10-PCS; principal; 2017-10-21 09:00)
DX: A41.02 Sepsis due to Methicillin resistant Staphylococcus aureus (principal); M00.072 Staphylococcal arthritis, left ankle and foot; L03.116 Cellulitis of left lower limb; B96.89 Other specified bacterial agents as the cause of diseases classified elsewhere; E11.65 Type 2 diabetes mellitus with hyperglycemia; K80.20 Calculus of gallbladder without cholecystitis without obstruction; E11.319 Type 2 diabetes mellitus with unspecified diabetic retinopathy without macular edema; E11.42 Type 2 diabetes mellitus with diabetic polyneuropathy; E66.9 Obesity, unspecified; Z86.14 Personal history of Methicillin resistant Staphylococcus aureus infection; M19.072 Primary osteoarthritis, left ankle and foot; R91.8 Other nonspecific abnormal finding of lung field; D64.9 Anemia, unspecified; Z68.31 Body mass index [BMI] 31.0-31.9, adult; Z79.84 Long term (current) use of oral hypoglycemic drugs; Z86.19 Personal history of other infectious and parasitic diseases
CPT/HCPCS: 36415; 36569; 71045; 71260; 74177; 74470; 76000; 80048; 80053; 80202; 81001; 82607; 82728; 82746; 82784; 82948; 83540; 84165; 84166; 84550; 85025; 85045; 85610; 85651; 86140; 87040; 87071; 87075; 87086; 87186; 87205; 88184; 88305; 93005; 93306; 93307; 93312; 93325; 96367; 96372; 99284; J1644; J1885; J2001; J2185; J2250; J2270; J2997; J3370; J7030; J7050; Q9967

== ENCOUNTER 2017-12-18 21:42 | Observation (INO) | payer BC ==
[~2017-12-18] VITALS: Ht 180.3 cm; Wt 112.1 kg
[~2017-12-18 21:42] MED LIST changes: +CLOTRIMAZOLE15 GM TOP; -IOPAMIDOL 370 MG/ML 200 ML INFUS..BTL INJ ONE; -SODIUM CHLORIDE 0.9% 250ML 250 ML ONE
[2017-12-18] MEDS ORDERED: IBUPROFEN 600 MG TAB ONE (21:55)
[2017-12-18] MEDS ORDERED: IBUPROFEN 400 MG TAB PO STA (21:57)
[2017-12-18] MEDS ORDERED: SODIUM CHLORIDE 0.9% 1000ML 1,000 ML IV STA (22:01)
[2017-12-18 22:07] LABS: BASOPHILS % 0.2 % (0.0-1.0); EOSINOPHILS # (AUTO) 0.1 (0.0-0.4); HEMATOCRIT 33.8 % (38.2-49.6); HEMOGLOBIN 11.3 g/dL (14.0-18.0); LYMPHOCYTES # (AUTO) 2.3 (1.0-3.2); LYMPHOCYTES % 17.1 % (18.0-39.1); MEAN CORPUSCULAR HEMOGLOBIN 26.4 pg (28-32); MEAN CORPUSCULAR HGB CONC 33.4 g/dL (31-35); MONOCYTES # (AUTO) 0.8 (0.2-0.8); MONOCYTES % 6.1 % (4.4-11.3); NEUTROPHILS # (AUTO) 10.3 (2.1-6.9); NEUTROPHILS % 75.2 % (38.7-80.0); PLATELET COUNT 215 x10e3/uL (140-360); RED BLOOD COUNT 4.28 x10e6/uL (4.3-5.7)
[2017-12-18] MEDS ORDERED: NEOMYCIN/POLYMYX/BACITR OINT 0.9 GM PKT TOP ONE (22:15)
[2017-12-18 22:21] LABS: ALANINE AMINOTRANSFERASE 16 IU/L (0-55); ALBUMIN 3.9 g/dL (3.5-5.0); ALBUMIN/GLOBULIN RATIO 0.8 (0.8-2.0); ALKALINE PHOSPHATASE 89 IU/L (40-150); ANION GAP 11.8 mmol/L (8-16); BLOOD UREA NITROGEN 18 mg/dL (7-26); BUN/CREATININE RATIO 17 (6-25); CALCIUM 9.8 mg/dL (8.4-10.2); CARBON DIOXIDE 25 mmol/L (22-29); CHLORIDE 99 mmol/L (98-107); CREATININE, SERUM 1.09 mg/dL (0.72-1.25); EST GLOMERULAR FILTRATION RATE > 60 ML/MIN (60-); GLUCOSE 125 mg/dL (74-118); POTASSIUM 3.8 mmol/L (3.5-5.1); SODIUM 132 mmol/L (136-145)
[2017-12-18 22:41] LABS: BACTERIA,URINE MANY /HPF; BILIRUBIN,URINE NEGATIVE (NEGATIVE); CLARITY,URINE HAZY (CLEAR); COLOR,URINE YELLOW (YELLOW); KETONES,URINE NEGATIVE (NEGATIVE); LEUKOCYTE ESTERASE ,URINE 2+ (NEGATIVE); MUCUS,URINE RARE (RARE); NITRITE,URINE POSITIVE (NEGATIVE); PROTEIN,URINE DIPSTICK TRACE (NEGATIVE); URINE UROBILINOGEN 0.2 mg/dL (0.2 - 1); WBC,URINE (MAN) >50 /HPF (0-5)
--- NOTE | 2017-12-18 23:16 | Diagnostic Imaging Report ---
EXAMINATION: CHEST 2 VIEWS INDICATION: Fever of unknown source COMPARISON: 07/26/2017 FINDINGS: TUBES and LINES: Right upper extent of the PICC line is visualized with tip at the level of the mid SVC. LUNGS: Lungs are well inflated. Lungs are clear. There is no evidence of pneumonia or pulmonary edema. PLEURA: No pleural effusion or pneumothorax. HEART AND MEDIASTINUM: The cardiomediastinal silhouette is unremarkable. BONES AND SOFT TISSUES: No acute osseous lesion. Soft tissues are unremarkable. UPPER ABDOMEN: No free air under the diaphragm. IMPRESSION: No acute thoracic abnormality. Signed by: Dr. Mauro Ospina M.D. on 12/18/2017 11:14 PM
[2017-12-19] VITALS (9 sets, daily range): BP systolic 93–158; BP diastolic 53–74
[2017-12-19] MEDS ORDERED: SODIUM CHLORIDE 0.9% 50ML 50 ML ONE (00:15)
[2017-12-19] MEDS ORDERED: IOPAMIDOL 370 MG/ML 200 ML INFUS..BTL INJ ONE (00:15)
--- NOTE | 2017-12-19 00:23 | Diagnostic Imaging Report ---
EXAM: CT Abdomen and Pelvis WITH contrast INDICATION: Pyuria, fever, history of right renal abscess COMPARISON: CT on 10/18/2017 TECHNIQUE: Abdomen and pelvis were scanned utilizing a multidetector helical scanner from the lung base to the pubic symphysis after administration of IV contrast. Coronal and sagittal reformations were obtained. Routine protocol was performed. Scan was performed when during portal venous phase. IV CONTRAST: 150 mL of Omnipaque 300 ORAL CONTRAST: Water RADIATION DOSE: Total DLP: ... mGy*cm Estimated effective dose: (DLP x 0.015 x size factor) mSv COMPLICATIONS: None FINDINGS: LINES and TUBES: None. LOWER THORAX: Unremarkable HEPATOBILIARY: No focal hepatic lesions. No biliary ductal dilation. GALLBLADDER: There are few stones in the gallbladder. No wall thickening. SPLEEN: No splenomegaly. PANCREAS: No focal masses or ductal dilatation. ADRENALS: No adrenal nodules KIDNEYS/URETERS: Kidneys enhance symmetrically. No hydronephrosis. No cystic or solid mass lesions. No stones. GI TRACT: No abnormal distention, wall thickening, or evidence of bowel obstruction. Appendix is normal. PELVIC ORGANS/BLADDER: Unremarkable. LYMPH NODES: No lymphadenopathy. VESSELS: There is mild atherosclerotic disease in the aorta and major arterial branches. PERITONEUM / RETROPERITONEUM: No free air or fluid. BONES: Unremarkable. SOFT TISSUES: Unremarkable. IMPRESSION: 1. No radiographic evidence of pyelonephritis, nephrolithiasis or perinephric fluid collection. 2. Cholelithiasis without evidence of acute cholecystitis. Signed by: Dr. Mauro Ospina M.D. on 12/19/2017 12:19 AM
[2017-12-19] MEDS: MEROPENEM 1GM 100 ML IV SCH ×2 (00:45→05:19)
[2017-12-19] MEDS ORDERED: ACETAMINOPHEN 325 MG TAB PO PRN (00:45)
[2017-12-19] MEDS ORDERED: DEXTROSE 50% SYRINGE 50 ML IV PRN (01:00)
[2017-12-19] MEDS: SODIUM CHLORIDE 0.9% 1000ML 1,000 ML IV SCH ×3 (03:55→16:45)
[2017-12-19] MEDS ORDERED: MEROPENEM 1 GM VIAL ONE (05:02)
[2017-12-19] MEDS ORDERED: METFORMIN HCL500 MG PO (05:03)
[2017-12-19] MEDS ORDERED: JANUVIA100 MG PO (05:03)
[2017-12-19] MEDS ORDERED: ATORVASTATIN CA10 MG PO (05:03)
[2017-12-19] MEDS ORDERED: GLIPIZIDE5 MG PO (05:03)
[2017-12-19] MEDS ORDERED: SODIUM CHLORIDE 0.9% 250ML 250 ML ONE (05:05)
[2017-12-19] MEDS: INSULIN LISPRO 100 UNIT/1 ML 3ML VIAL SQ SCH ×4 (07:55→21:30)
--- NOTE | 2017-12-19 13:37 | History and Physical ---
The patient is a 52-year-old male who was admitted due to complaints of diffuse body aching, weakness, fever up to 101, chills, headaches present since yesterday. The patient has had problems of MRSA sepsis since July 2017. By this time, he had abscess or infected right kidney requiring drainage. From July until September, for 8 weeks, antibiotics were given. In September 2017, he had episodes of chills and fever, and there was a left ankle infection consistent with osteomyelitis, so it was decided for 12 weeks to give him antibiotics. He had a PICC line in the right arm. He was supposed to continue until December. He has a history of diabetes mellitus and hyperlipidemia. Denies hypertension. No heart, lung, GI, eyes, ears or neurology problems. Surgery: Right eye surgery, probably laser. There was a left foot surgery in September 2017 due to osteomyelitis. HE IS NOT ALLERGIC TO MEDICATION. The patient used to smoke 1-1/2 packs per day for 15 years, quit about 20 to 25 years ago. No alcohol or illicit drug abuse. PHYSICAL EXAMINATION GENERAL: He is alert and cooperative. VITALS: The patient has fever around 99 right now. The blood pressure is 121/64, heart rate 89, respiratory rate 18. On room air, oxygen saturation is 94. HEENT: Atraumatic. NECK: No tenderness. LUNGS: Clear. HEART: No murmur. ABDOMEN: Soft. EXTREMITIES: He has a right upper extremity PICC line. He has some dressing coverage of the left foot. There is left pedal edema. LABS: The patient had chest x-ray which disclosed no acute thoracic abnormality. He had also evaluation of the abdomen, which disclosed cholelithiasis without cholecystitis. No pyelonephritis or nephrolithiasis is present. WBC 13.66. Hemoglobin and platelets are unremarkable. The urine disclosed WBCs more than 50 and RBCs 11-20. The patient had a CT scan of the abdomen and pelvis without any particular findings. IMPRESSION 1. Persistent methicillin-resistant Staphylococcus aureus infection since July. 2. History of right kidney purulent infection with drainage. 3. Left osteomyelitis. 4. Patient has diabetes mellitus. PLAN: Continue with Dr. Odell. He was started on Tylenol q.4 h. p.r.n. He is currently on Merrem q.8 h. IV. He is on insulin lispro sliding scale. We are planning also to request an echocardiogram to investigate whether or not any endocarditis or any abnormality of the valves is present. Dictated by Dr. Mohamud Watson. Job#: [id number] MH
[2017-12-19] MEDS: MEROPENEM 1 GM VIAL IV SCH ×2 (14:27→21:02)
[2017-12-19] MEDS: IBUPROFEN 600 MG TAB PO PRN (14:50)
[2017-12-19] MEDS: ONDANSETRON HCL INJ 2 MG/ML VIAL IV PRN (15:42)
[2017-12-19] MEDS: MORPHINE SULFATE 2 MG/ML SYR IV PRN (15:42)
[2017-12-19] MEDS: DAPTOMYCIN 400 MG in SODIUM CHLORIDE 0.9% 100 ML IV SCH (17:17)
[2017-12-20] VITALS (8 sets, daily range): BP systolic 118–145; BP diastolic 60–77
--- NOTE | 2017-12-20 01:05 | Consultation ---
DATE OF CONSULTATION: REASON FOR CONSULTATION: Fever and chills. HISTORY OF PRESENT ILLNESS: This patient is well known to me. He has history of Staphylococcus aureus, renal abscess treated with IV antibiotic, came back with recurrent infection. The patient was given daptomycin, treated since September, supposedly for 3 months to finish in December. The patient is on daptomycin as mentioned above, but he comes in with fever and chills. I told the patient to come to the hospital. He is currently lying in bed complaining of fever and chills. Patient has been on IV daptomycin as mentioned above. This patient who was originally first on July 24, 2017, where he had renal abscess, was discharged home with 8 weeks of IV cefazolin and then he came back on October 20, 2017, where he again was found to have MRSA. He was discharged home with IV antibiotic for 3 months, this time on daptomycin. The patient while getting daptomycin is coming now with fever and chills. He is apparently doing well, lying in bed comfortably. PHYSICAL EXAMINATION GENERAL: He is currently alert, oriented, does not seem to be in acute distress. VITALS: Stable. Currently afebrile. HEENT: He does not appear icteric. NECK: Supple. CHEST: Clear. HEART: S1 and S2. No murmur. ABDOMEN: Soft. Bowel sounds present. No tenderness. EXTREMITIES: No edema. IMPRESSIONS 1. Fever and chills. 2. Urinary tract infection. 3. Pyelonephritis, continue with meropenem 500 IV q.8 h. fluids. 4. History of methicillin-resistant Staphylococcus aureus sepsis, recurrent. Will continue with daptomycin for the time being. Recheck blood cultures. Recheck complete blood count. Obtain sedimentation rate. Obtain C-reactive protein. Discussed with the patient. A CAT scan was done, showed there is no evidence of pyelonephritis. There is cholelithiasis, but there is no cholecystitis. Chest x-ray showed no acute finding. His white count 13.6 on admission, hemoglobin 11. His sodium 132, potassium 3.8, creatinine 1.09, and glucose 204. Will follow. Job#: [id number]
[2017-12-20] MEDS: SODIUM CHLORIDE 0.9% 1000ML 1,000 ML IV SCH ×3 (01:22→17:23)
[2017-12-20] MEDS: MEROPENEM 1 GM VIAL IV SCH ×3 (05:06→21:16)
[2017-12-20] MEDS: MORPHINE SULFATE 2 MG/ML SYR IV PRN ×3 (05:08→17:32)
[2017-12-20] MEDS: ONDANSETRON HCL INJ 2 MG/ML VIAL IV PRN ×4 (05:08→21:35)
[2017-12-20 05:27] LABS: BASOPHILS % 0.3 % (0.0-1.0); EOSINOPHILS # (AUTO) 0.2 (0.0-0.4); EOSINOPHILS % 2.4 % (0.0-6.0); HEMATOCRIT 29.6 % (38.2-49.6); HEMOGLOBIN 9.7 g/dL (14.0-18.0); LYMPHOCYTES # (AUTO) 1.7 (1.0-3.2); LYMPHOCYTES % 16.8 % (18.0-39.1); MEAN CORPUSCULAR HEMOGLOBIN 26.5 pg (28-32); MEAN CORPUSCULAR HGB CONC 32.8 g/dL (31-35); MEAN CORPUSCULAR VOLUME 80.9 fL (81-99); MONOCYTES # (AUTO) 0.7 (0.2-0.8); NEUTROPHILS # (AUTO) 7.4 (2.1-6.9); PLATELET COUNT 161 x10e3/uL (140-360); RED BLOOD COUNT 3.66 x10e6/uL (4.3-5.7); RED CELL DISTRIBUTION WIDTH 16.6 % (11.7-14.4)
[2017-12-20 05:58] LABS: ANION GAP 10.9 mmol/L (8-16); BLOOD UREA NITROGEN 12 mg/dL (7-26); BUN/CREATININE RATIO 15 (6-25); CALCIUM 8.4 mg/dL (8.4-10.2); CARBON DIOXIDE 25 mmol/L (22-29); CHLORIDE 103 mmol/L (98-107); CREATININE, SERUM 0.79 mg/dL (0.72-1.25); EST GLOMERULAR FILTRATION RATE > 60 ML/MIN (60-); GLUCOSE 247 mg/dL (74-118); POTASSIUM 3.9 mmol/L (3.5-5.1); SODIUM 135 mmol/L (136-145)
[2017-12-20] MEDS: INSULIN LISPRO 100 UNIT/1 ML 3ML VIAL SQ SCH ×4 (07:35→21:30)
[2017-12-20] MEDS: IBUPROFEN 600 MG TAB PO PRN (16:00)
[2017-12-20] MEDS: METFORMIN HCL 500 MG TAB PO SCH (16:55)
[2017-12-20] MEDS: CLOTRIMAZOLE 1% CR 15 GM TOP SCH (17:00)
[2017-12-20] MEDS: DAPTOMYCIN 400 MG in SODIUM CHLORIDE 0.9% 100 ML IV SCH (17:00)
[2017-12-20] MEDS ORDERED: ATORVASTATIN 10 MG TAB PO SCH (21:00)
[2017-12-20] MEDS ORDERED: PROMETHAZINE 12.5MG/ NACL 0.9% 12.5 MG/50 ML BAG IV PRN (23:30)
--- NOTE | 2017-12-21 01:02 | Progress Note ---
DATE: December 20, 2017 Mr. Medellin is feeling better. No new complaints. REVIEW OF SYSTEMS HEENT: Negative. PULMONARY: Negative. CARDIAC: Negative. PHYSICAL EXAMINATION GENERAL: He is currently alert, oriented, does not seem to be in acute distress. VITAL SIGNS: Stable. Currently afebrile. HEENT: He is not icteric. NECK: Supple. CHEST: Clear. HEART: S1 and S2. No murmur. ABDOMEN: Soft. Bowel sounds present. No tenderness. EXTREMITIES: No edema. IMPRESSIONS 1. Sepsis, Escherichia coli, getting better. Can probably change to oral Cipro tomorrow. 2. History of methicillin-resistant Staphylococcus aureus bacteremia. Repeat cultures negative, to finish daptomycin as ordered. Will discuss tomorrow. Job#: [id number]
[2017-12-21] MEDS: MEROPENEM 1 GM VIAL IV SCH ×2 (05:18→14:00)
[2017-12-21] MEDS: SODIUM CHLORIDE 0.9% 1000ML 1,000 ML IV SCH ×2 (05:25→08:45)
[2017-12-21 05:28] VITALS: BP 172/75
[2017-12-21] MEDS: INSULIN LISPRO 100 UNIT/1 ML 3ML VIAL SQ SCH ×3 (07:30→16:30)
[2017-12-21 07:53] VITALS: BP 148/65
[2017-12-21 08:00] VITALS: BP 148/65
[2017-12-21] MEDS: METFORMIN HCL 500 MG TAB PO SCH ×2 (08:00→17:00)
[2017-12-21] MEDS ORDERED: SITAGLIPTIN 100 MG TAB PO SCH (09:00)
[2017-12-21] MEDS ORDERED: GLIPIZIDE 5 MG TAB PO SCH (09:00)
[2017-12-21] MEDS: CLOTRIMAZOLE 1% CR 15 GM TOP SCH ×2 (09:00→17:00)
[2017-12-21 12:00] VITALS: BP 126/72
[2017-12-21] MEDS ORDERED: CIPRO500 MG PO (15:16)
--- NOTE | 2017-12-21 15:26 | Discharge Summary ---
PRIMARY CARE: Dr. Neno Quintana FINAL DIAGNOSIS: Escherichia coli urinary tract infection. SECONDARY DIAGNOSES 1. Previous/recent methicillin-resistant Staphylococcus aureus infection. 2. Diabetes. CONSULTANTS: Dr. Odell, infectious disease. PROCEDURES/STUDIES PERFORMED: Computerized tomography of the abdomen and pelvis was benign. HISTORY: Per H and P. HOSPITAL COURSE: Patient was admitted. Fortunately, this was not a recurrent MRSA. The patient will continue his IV daptomycin with Dr. Odell for another 6 weeks via his PICC line. I have discussed with Dr. Odell. Patient will go home today on Cipro times 2 weeks. Patient will follow up with PCP in a couple of weeks. He also should see a urologist. He also should see his urologist, Dr. Avila, to see if he has prostate enlargement. Patient was seen and examined today. Patient had an episode of hypoglycemia likely due to too much sliding scale. However, I told him to increase his metformin to 1000 mg twice a day and hold off on his glipizide. CONDITION ON DISCHARGE: Stable. DISCHARGE MEDICATIONS: Please see medication reconciliation form. ADELITA LEIVA M.D. Job#: [id number] RI cc:NENO QUINTANA MD
[2017-12-21] MEDS: DAPTOMYCIN 400 MG in SODIUM CHLORIDE 0.9% 100 ML IV SCH (15:56)
[2017-12-21 16:46] VITALS: BP 157/74
== END 2017-12-21 17:39 | disposition home or self-care (01) ==
LOC: ER 21:42 → ERHOLD 12-19 01:05 → MED/SURG2 12-19 02:38
PROVIDERS: ADMIT Internal Medicine; ATTEND Internal Medicine
DX: A41.9 Sepsis, unspecified organism (principal); N39.0 Urinary tract infection, site not specified; R50.9 Fever, unspecified; E11.69 Type 2 diabetes mellitus with other specified complication; M86.8X7 Other osteomyelitis, ankle and foot; E78.5 Hyperlipidemia, unspecified; Z87.891 Personal history of nicotine dependence; K80.20 Calculus of gallbladder without cholecystitis without obstruction; B96.20 Unspecified Escherichia coli [E. coli] as the cause of diseases classified elsewhere; Z86.14 Personal history of Methicillin resistant Staphylococcus aureus infection; E11.649 Type 2 diabetes mellitus with hypoglycemia without coma; Z79.84 Long term (current) use of oral hypoglycemic drugs
CPT/HCPCS: 36415 ×4; 71046; 74177; 80048; 80053; 81001; 82948 ×3; 85025 ×2; 87040; 87086; 87186; 99284; G0378 ×3; J2185 ×4; J2270 ×2; J2405 ×2; J2550; J7030 ×4; J7050 ×4; Q9967